=== PATIENT | male | born 1965 | race Caucasian/White ===

== ENCOUNTER 2017-11-10 11:18 | Observation (INO) | payer MEDICARE ==
--- NOTE | 2017-11-10 12:17 | RAD REPORT ---
EXAM DESCRIPTION: CT - Head Brain Wo Cont - 11/10/2017 12:08 pm CLINICAL HISTORY: Numbness and headaches COMPARISON: None TECHNIQUE: Computed axial tomography of the head was obtained. IV contrast was not requested. All CT scans are performed using dose optimization technique as appropriate and may include automated exposure control or mA/KV adjustment according to patient size. FINDINGS: An intracranial bleed is not seen . The ventricles are normal in caliber. No extra-axial fluid collection is noted. 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 Fluid within the sinuses/ mastoids is not seen. IMPRESSION: No acute intracranial abnormality is seen. If patient's symptoms persist MRI of the bra in would be recommended.
[2017-11-10 12:20] LABS: Absolute Monocytes 0.7 K/uL (0.1-1.3); Basophils % 1.2 % (0-1.3); Eosinophils % 4.5 % (0-4.4); Hematocrit 40.7 % (39.6-49.0); Lymphocytes % 24.7 % (15.3-44.8); MCH 28.4 pg (27.0-35.0); MCV 86.4 fL (80-100); Monocytes % 8.4 % (3.3-12.3)
[2017-11-10] MEDS ORDERED: FENTANYL CITR 100 MCG/2 ML ONE (12:59)
[2017-11-10 13:48] LABS: BUN Blood Urea Nitrogen 32 mg/dL (7-18); Bicarbonate 28 mmol/L (21-32); Glucose Level 126 mg/dL (74-106); Potassium 4.1 mmol/L (3.5-5.1); Sodium Level 147 mmol/L (136-145)
[2017-11-10 14:01] LABS: C-Reactive Protein < 5.00 mg/L (<3.00)
[2017-11-10] MEDS ORDERED: NA CHLORIDE 0.9% 1,000 ML ONE (14:10)
--- NOTE | 2017-11-10 14:35 | EDPHYS ---
Physician Documentation [facility] Name: Orlando Burris Age: 52 yrs Sex: Male : 1965 Arrival Date: 11/10/2017 Time: 11:22 Bed 6 Private MD: CECELIA HANKS ED Physician Alan Rico HPI: 11/10 12:21 This 52 yrs old Male presents to ER via Wheelchair with complaints of HEAD jr8 PAIN, Numbness Of Lips. 12:21 The patient complains of pain to the right hinduism. The patient describes the headache jr8 as constant, sharp. Onset: The symptoms/episode began/occurred acutely, 4 day(s) ago. Associated signs and symptoms: Pertinent positives: paresthesias. Severity of symptoms: At its worst the pain was moderate, in the emergency department the pain is unchanged. Headache History: The patient has had previous headaches and this one is different than previous episodes. The symptoms are alleviated by nothing. the symptoms are aggravated by nothing. The patient has not experienced similar symptoms in the past. The patient has not recently seen a physician. 12:21 right sided headache around hinduism that has been going on for four days. Feels jr8 paresthesias of the right lateral lip. Denies any other deficits . Historical: - Allergies: 11:37 NKDA; tw2 - Home Meds: 11:37 amlodipine 10 mg tab 1 tab once daily [Active]; atorvastatin 40 mg Oral tab 1 tab once tw2 daily [Active]; Butalbital Compound 50-325-40 mg Oral tab 1 tab every 4 hours [Active]; - PMHx: 11:37 Diabetes - IDDM; High Cholesterol; Hypertension; tw2 - PSHx: 11:37 right foot surgery; tw2 - Immunization history:: Adult Immunizations up to date. - Social history:: Smoking status: Patient uses tobacco products, smokes one-half pack cigarettes per day. - Ebola Screening: : Patient denies travel to an Ebola-affected area in the 21 days before illness onset. ROS: 12:21 Eyes: Negative for injury, pain, redness, and discharge, ENT: Negative for injury, jr8 pain, and discharge, Neck: Negative for injury, pain, and swelling, Cardiovascular: Negative for chest pain, palpitations, and edema, Respiratory: Negative for shortness of breath, cough, wheezing, and pleuritic chest pain, Abdomen/GI: Negative for abdominal pain, nausea, vomiting, diarrhea, and constipation, Back: Negative for injury and pain, MS/Extremity: Negative for injury and deformity, Skin: Negative for injury, rash, and discoloration. 12:21 Neuro: Positive for headache, numbness, tingling. Exam: 12:21 Head/Face: Normocephalic, atraumatic. Eyes: Pupils equal round and reactive to light, jr8 extra-ocular motions intact. Lids and lashes normal. Conjunctiva and sclera are non-icteric and not injected. Cornea within normal limits. Periorbital areas with no swelling, redness, or edema. ENT: Nares patent. No nasal discharge, no septal abnormalities noted. Tympanic membranes are normal and external auditory canals are clear. Oropharynx with no redness, swelling, or masses, exudates, or evidence of obstruction, uvula midline. Mucous membranes moist. Neck: Trachea midline, no thyromegaly or masses palpated, and no cervical lymphadenopathy. Supple, full range of motion without nuchal rigidity, or vertebral point tenderness. No Meningismus. Cardiovascular: Regular rate and rhythm with a normal S1 and S2. No gallops, murmurs, or rubs. Normal PMI, no JVD. No pulse deficits. Respiratory: Lungs have equal breath sounds bilaterally, clear to auscultation and percussion. No rales, rhonchi or wheezes noted. No increased work of breathing, no retractions or nasal flaring. Abdomen/GI: Soft, non-tender, with normal bowel sounds. No distension or tympany. No guarding or rebound. No evidence of tenderness throughout. Back: No spinal tenderness. No costovertebral tenderness. Full range of motion. Skin: Warm, dry with normal turgor. Normal color with no rashes, no lesions, and no evidence of cellulitis. MS/ Extremity: Pulses equal, no cyanosis. Neurovascular intact. Full, normal range of motion. 12:21 Neuro: Orientation: to person, place, time \T\ situation. Mentation: is normal, Memory: is normal, immediate memory is intact, recent memory is intact, remote memory is intact, Cranial nerves: CN I not tested, CN II- XII are normal as tested, visual mcelroy are intact. extraocular movements are intact, Facial palsy and sensory deficits are absent. no gross hearing deficit,. Nystagmus is absent. Speech is clear and appropriate. Tongue strength is normal, Cerebellar function: normal finger to nose testing, heel to moran testing is normal, Motor: moves all fours, strength is 5/5 in all extremities, Sensation: no obvious gross deficits, Gait: not tested. seizure activity, is not displayed by the patient, Abnormal movements: there are no abnormal movements. Vital Signs: 11:22 Weight 115.67 kg; Height 6 ft. 11 in. (210.82 cm); Pain 6/10; ss 11:34 BP 92 / 58; Pulse 75; Resp 14; Temp 98.4; Pulse Ox 96% on R/A; tw2 11:44 BP 110 / 64 (man/); Pulse 75; tw2 12:30 BP 129 / 71; Pulse 73; Resp 14; Pulse Ox 96% on R/A; tw2 13:07 BP 147 / 74; Pulse 75; Resp 10; Pulse Ox 95% on R/A; tw2 14:16 BP 134 / 80; Pulse 74; Resp 14; Pulse Ox 97% on R/A; tw2 15:21 BP 149 / 90; Pulse 76; Resp 17; Pulse Ox 97% on R/A; tw2 16:04 BP 129 / 79; Pulse 79; Resp 17; Pulse Ox 98% on R/A; tw2 11:22 Body Mass Index 26.02 (115.67 kg, 210.82 cm) ss 11:44 provider MAURICIO Phillips at bedside and is aware tw2 NIH Stroke Scale Scores: 12:21 NIHSS Score: 0 jr8 MDM: 11:38 Patient medically screened. jr8 14:32 Data reviewed: vital signs, nurses notes, lab test result(s), radiologic studies, CT jr8 scan, and as a result, I will admit patient. Data interpreted: Pulse oximetry: on room air is 97 %. Interpretation: normal. Counseling: I had a detailed discussion with the patient and/or guardian regarding: the historical points, exam findings, and any diagnostic results supporting the discharge/admit diagnosis, lab results, radiology results, the need for further work-up and treatment in the hospital. ED course: Dr. Quinn accepted patient for further evaluation. Will consult Neurology. Talked to Dr. Johnson. At this time she is not convinced it is temporal arteritis. Will have neurology see him for stroke work up and to further r/o other causes of his numbness and headache . 11/10 11:47 Order name: CBC with Diff; Complete Time: 12:43 [facility] 11/10 11:47 Order name: Basic Metabolic Panel; Complete Time: 14:04 [facility] 11/10 11:47 Order name: C-Reactive Protein; Complete Time: 14:04 [facility] 11/10 11:47 Order name: Westergren Sedrate; Complete Time: 12:43 [facility] 11/10 15:20 Order name: Urine Dipstick--Ancillary (enter results) em1 11/10 15:31 Order name: Urine Dipstick-Ancillary; Complete Time: 15:56 [facility] 11/10 11:47 Order name: CT Head Brain wo Cont; Complete Time: 12:19 [facility] 11/10 14:33 Order name: Diet Ada 1800 Julio; Complete Time: 14:33 [facility] 11/10 14:46 Order name: CONS Physician Consult [facility] 11/10 11:47 Order name: IV; Complete Time: 12:10 [facility] 11/10 15:20 Order name: Urine Dipstick-Ancillary (obtain specimen); Complete Time: 15:20 em1 Administered Medications: 13:00 Drug: fentaNYL (PF) 25 mcg Route: IVP; Site: right forearm; tw2 14:00 Follow up: Response: No adverse reaction; Pain is unchanged, physician notified tw2 14:10 Drug: NS 0.9% 1000 ml Route: IV; Rate: 1000 ml; Site: right forearm; tw2 16:02 Follow up: Response: No adverse reaction; IV Status: Completed infusion; IV Intake: tw2 1000ml 14:38 Drug: Reglan 10 mg Route: IVP; Site: right forearm; tw2 16:02 Follow up: Response: No adverse reaction tw2 14:41 Drug: Benadryl 25 mg Route: IVP; Site: right forearm; tw2 16:02 Follow up: Response: No adverse reaction tw2 16:18 Drug: D50W 25 ml Route: IVP; Site: right forearm; tw2 16:39 Follow up: Response: No adverse reaction; Blood sugar is elevated tw2 Point of Care Testing: Blood Glucose: 16:12 Blood Glucose: 59 mg/dL; tw2 16:39 Blood Glucose: 191 mg/dL; tw2 16:12 per eli Benitez at this time. pt given PB and crackers will recheck before sending to the tw2 floor,provider notified. Ranges: Critical Glucose Levels:Adult <50 mg/dl or >400 mg/dl <40 mg/dl or >180 mg/dl Disposition: 11/10/17 14:34 Hospitalization ordered by Geo Quinn for Observation. Preliminary diagnosis are Headache, Paresthesia of skin. - Bed requested for Telemetry/MedSurg (observation). - Status is Observation. tw2 - Condition is Stable. - Problem is new. - Symptoms have improved. UTI on Admission? No NIH Stroke Scale - NIH Stroke Score Date: 11/10/2017 Time: 12:21 Total Score = 0 1a. Level of Consciousness (LOC) - 0(Alert) 1b. Level of Consciousness (LOC) (Year \T\ Age) - 0(Both) 1c. LOC Commands (Open \T\ Closes Eyes/Receiver Stocker) - 0(Both) 2. Best Gaze (Lateral Gaze Paresis) - 0(Normal) 3. Visual Field Loss - 0(No visual loss) 4. Facial Palsy - 0(Normal) 5a. Left Arm: Motor (10-second hold) - 0(No drift) 5b. Right Arm: Motor (10-second hold) - 0(No drift) 6a. Left Leg: Motor (5-second hold - always test supine) - 0(No drift) 6b. Right Leg: Motor (5-second hold - always test supine) - 0(No drift) 7. Limb Ataxia (finger/nose \T\ heel/moran - test with eyes open) - 0(Absent) 8. Sensory Loss (pinprick arms/legs/face) - 0(Normal) 9. Best Language: Aphasia (description/naming/reading) - 0(No aphasia) 10. Dysarthria (speech clarity - read or repeat words) - 0(Normal) 11. Extinction and Inattention (visual/tactile/auditory/spatial/personal) - 0(No abnormality) Initials: jr8 Addendum: 11/12/2017 14:42 Co-signature as Attending Physician, Alan Rico MD I agree with the il assessment and plan of care. Signatures: Dispatcher [employer] EDMS Mary Powers RN RN dw Haider Burt em1 Jimena Verma RN RN Jose Jameson PA PA jr8 Marcella Vega RN RN tw2 Alan Rico MD MD wa Corrections: (The following items were deleted from the chart) 11/10 15:53 14:34 Hospitalization Ordered by Geo Quinn MD for Observation. Preliminary dw diagnosis is Headache; Paresthesia of skin. Bed requested for Telemetry/MedSurg (observation). Status is Observation. Condition is Stable. Problem is new. Symptoms have improved. UTI on Admission? No. jr8 16:40 15:53 11/10/2017 14:34 Hospitalization Ordered by Geo Quinn MD for tw2 Observation. Preliminary diagnosis is Headache; Paresthesia of skin. Bed requested for Telemetry/MedSurg (observation). Status is Observation. Condition is Stable. Problem is new. Symptoms have improved. UTI on Admission? No. dw
--- NOTE | 2017-11-10 14:35 | ER ---
Nurse's Notes [facility] Name: Orlando Burris Age: 52 yrs Sex: Male : 1965 Arrival Date: 11/10/2017 Time: 11:22 Bed 6 Private MD: CECELIA HANKS Diagnosis: Headache;Paresthesia of skin Presentation: 11/10 11:22 Presenting complaint: Patient states: Sent by wound healing for evaluation of tingling ss to R side of lips x 4-5 days and R sided headache x 2-3 days. Transition of care: patient was not received from another setting of care. Onset of symptoms was November 06, 2017. Risk Assessment: Do you want to hurt yourself or someone else? Patient reports no desire to harm self or others. Initial Sepsis Screen: Does the patient meet any 2 criteria? No. Patient's initial sepsis screen is negative. Does the patient have a suspected source of infection? Yes: Skin breakdown/wound. Care prior to arrival: None. 11:22 Method Of Arrival: Wheelchair ss 11:22 Acuity: NIRAJ 3 ss 11:38 Transition of care: patient was not received from another setting of care. Onset of tw2 symptoms was November 10, 2017. Risk Assessment: Do you want to hurt yourself or someone else? Patient reports no desire to harm self or others. Initial Sepsis Screen: Does the patient meet any 2 criteria? Does the patient have a suspected source of infection? No. Patient's initial sepsis screen is negative. Care prior to arrival: None. 11:38 Acuity: NIRAJ 3 tw2 11:38 Method Of Arrival: Wheelchair tw2 Historical: - Allergies: 11:37 NKDA; tw2 - Home Meds: 11:37 amlodipine 10 mg tab 1 tab once daily [Active]; atorvastatin 40 mg Oral tab 1 tab once tw2 daily [Active]; Butalbital Compound 50-325-40 mg Oral tab 1 tab every 4 hours [Active]; - PMHx: 11:37 Diabetes - IDDM; High Cholesterol; Hypertension; tw2 - PSHx: 11:37 right foot surgery; tw2 - Immunization history:: Adult Immunizations up to date. - Social history:: Smoking status: Patient uses tobacco products, smokes one-half pack cigarettes per day. - Ebola Screening: : Patient denies travel to an Ebola-affected area in the 21 days before illness onset. Screenin:36 Abuse screen: Denies threats or abuse. Nutritional screening: No deficits noted. tw2 Tuberculosis screening: No symptoms or risk factors identified. Fall Risk None identified. Assessment: 11:35 General: Appears in no apparent distress. slender, Behavior is calm, cooperative, tw2 appropriate for age, Smells of cigarette smoke. Pain: Complains of pain in right jewish. Neuro: Level of Consciousness is awake, alert, obeys commands, Oriented to person, place, time, situation. Cardiovascular: Denies chest pain, shortness of breath, Heart tones S1 S2 Capillary refill < 3 seconds Patient's skin is warm and dry. Respiratory: Airway is patent Respiratory effort is even, unlabored, Respiratory pattern is regular, symmetrical, Breath sounds are clear bilaterally. GI: Abdomen is flat, Bowel sounds present X 4 quads. : No signs and/or symptoms were reported regarding the genitourinary system. EENT: No signs and/or symptoms were reported regarding the EENT system. Derm: No signs and/or symptoms reported regarding the dermatologic system. Musculoskeletal: Range of motion: intact in all extremities. 12:31 Reassessment: Patient appears in no apparent distress at this time. No changes from tw2 previously documented assessment. Patient and/or family updated on plan of care and expected duration. Pain level reassessed. Patient is alert, oriented x 3, equal unlabored respirations, skin warm/dry/pink. 13:07 Reassessment: No changes from previously documented assessment. Patient and/or family tw2 updated on plan of care and expected duration. Pain level reassessed. Patient is alert, oriented x 3, equal unlabored respirations, skin warm/dry/pink. pt states "i am mad at my sister for not being up here", offered to call pts sister pt states "she has the phone and i dont know the number but she is talking to her ex and i see who is more important, but you can call here and tell her to get up here", called sister she stated "tell him i dropped off his niece who needed a ride to work and i am on my way", pt notified pt states "well she is going to hear it when she gets up here". 14:17 Reassessment: Patient appears in no apparent distress at this time. No changes from tw2 previously documented assessment. Patient and/or family updated on plan of care and expected duration. Pain level reassessed. Patient is alert, oriented x 3, equal unlabored respirations, skin warm/dry/pink. 15:22 Reassessment: Patient appears in no apparent distress at this time. No changes from tw2 previously documented assessment. Patient and/or family updated on plan of care and expected duration. Pain level reassessed. Patient is alert, oriented x 3, equal unlabored respirations, skin warm/dry/pink. 16:00 Reassessment: Patient appears in no apparent distress at this time. No changes from tw2 previously documented assessment. Patient and/or family updated on plan of care and expected duration. Pain level reassessed. Patient is alert, oriented x 3, equal unlabored respirations, skin warm/dry/pink. 16:39 Reassessment: Patient appears in no apparent distress at this time. No changes from tw2 previously documented assessment. Patient and/or family updated on plan of care and expected duration. Pain level reassessed. Patient is alert, oriented x 3, equal unlabored respirations, skin warm/dry/pink. Vital Signs: 11:22 Weight 115.67 kg; Height 6 ft. 11 in. (210.82 cm); Pain 6/10; ss 11:34 BP 92 / 58; Pulse 75; Resp 14; Temp 98.4; Pulse Ox 96% on R/A; tw2 11:44 BP 110 / 64 (man/); Pulse 75; tw2 12:30 BP 129 / 71; Pulse 73; Resp 14; Pulse Ox 96% on R/A; tw2 13:07 BP 147 / 74; Pulse 75; Resp 10; Pulse Ox 95% on R/A; tw2 14:16 BP 134 / 80; Pulse 74; Resp 14; Pulse Ox 97% on R/A; tw2 15:21 BP 149 / 90; Pulse 76; Resp 17; Pulse Ox 97% on R/A; tw2 16:04 BP 129 / 79; Pulse 79; Resp 17; Pulse Ox 98% on R/A; tw2 11:22 Body Mass Index 26.02 (115.67 kg, 210.82 cm) ss 11:44 provider MAURICIO Phillips at bedside and is aware tw2 NIH Stroke Scale Scores: 12:21 NIHSS Score: 0 jr8 ED Course: 11:22 Patient arrived in ED. sb2 11:23 CECELIA HANKS is Private Physician. sb2 11:28 Marcella Vega, FRANCISCO is Primary Nurse. tw2 11:35 Arm band placed on. tw2 11:35 Placed in gown. Bed in low position. Side rails up X 1. delivery associate on. Pulse ox tw2 on. NIBP on. 11:38 Jose Jamseon PA is PHCP. jr8 11:38 Alan Rico MD is Attending Physician. jr8 11:40 Triage completed. ss 11:[address] mw3 11:55 Inserted saline lock: 22 gauge in right wrist, using aseptic technique. Blood collected.jp3 11:55 Initial lab(s) drawn, by me, sent to lab. Inserted. jp3 12:06 CT completed. Patient tolerated procedure well. Patient moved back from CT. mw3 12:08 CT Head Brain wo Cont In Process Unspecified. EDMS 14:34 Geo Quinn MD is Hospitalizing Provider. jr8 16:01 No provider procedures requiring assistance completed. Patient admitted, IV remains in tw2 place. 16:26 Awaiting: recheck of Blood sugar prior to going to floor room. tw2 Administered Medications: 13:00 Drug: fentaNYL (PF) 25 mcg Route: IVP; Site: right forearm; tw2 14:00 Follow up: Response: No adverse reaction; Pain is unchanged, physician notified tw2 14:10 Drug: NS 0.9% 1000 ml Route: IV; Rate: 1000 ml; Site: right forearm; tw2 16:02 Follow up: Response: No adverse reaction; IV Status: Completed infusion; IV Intake: tw2 1000ml 14:38 Drug: Reglan 10 mg Route: IVP; Site: right forearm; tw2 16:02 Follow up: Response: No adverse reaction tw2 14:41 Drug: Benadryl 25 mg Route: IVP; Site: right forearm; tw2 16:02 Follow up: Response: No adverse reaction tw2 16:18 Drug: D50W 25 ml Route: IVP; Site: right forearm; tw2 16:39 Follow up: Response: No adverse reaction; Blood sugar is elevated tw2 Point of Care Testing: Blood Glucose: 16:12 Blood Glucose: 59 mg/dL; tw2 16:39 Blood Glucose: 191 mg/dL; tw2 16:12 per eli Benitez at this time. pt given PB and crackers will recheck before sending to the 2 floor,provider notified. Ranges: Intake: 16:02 IV: 1000ml; Total: 1000ml. tw2 Outcome: 14:34 Decision to Hospitalize by Provider. dayo 16:02 Admitted to Med/surg accompanied by eli, via wheelchair, room 205, Report called to [facility] FRANCISCO Flores 16:02 Condition: stable 16:02 Instructed on the need for admit. 16:40 Patient left the ED. tw2 NIH Stroke Scale - NIH Stroke Score Date: 11/10/2017 Time: 12:21 Total Score = 0 1a. Level of Consciousness (LOC) - 0(Alert) 1b. Level of Consciousness (LOC) (Year \\T\\ Age) - 0(Both) 1c. LOC Commands (Open \\T\\ Closes Eyes/Sprinkler Installer) - 0(Both) 2. Best Gaze (Lateral Gaze Paresis) - 0(Normal) 3. Visual Field Loss - 0(No visual loss) 4. Facial Palsy - 0(Normal) 5a. Left Arm: Motor (10-second hold) - 0(No drift) 5b. Right Arm: Motor (10-second hold) - 0(No drift) 6a. Left Leg: Motor (5-second hold - always test supine) - 0(No drift) 6b. Right Leg: Motor (5-second hold - always test supine) - 0(No drift) 7. Limb Ataxia (finger/nose \\T\\ heel/moran - test with eyes open) - 0(Absent) 8. Sensory Loss (pinprick arms/legs/face) - 0(Normal) 9. Best Language: Aphasia (description/naming/reading) - 0(No aphasia) 10. Dysarthria (speech clarity - read or repeat words) - 0(Normal) 11. Extinction and Inattention (visual/tactile/auditory/spatial/personal) - 0(No abnormality) Initials: dayo Signatures: Dispatcher [employer] EDWY Jimena Verma RN RN ss Roszak, Josh, PA PA jr8 Marcella Vega RN RN tw2 Zeynep Kat sb2 Jimena Domínguez mw3 Wood Anderson jp3
[2017-11-10] MEDS ORDERED: METOCLOPRAMIDE 10 MG/2mL INJ ONE (14:38)
[2017-11-10] MEDS ORDERED: DIPHENHYDRAMINE 50 MG/ML VIAL ONE (14:38)
[2017-11-10 15:31] LABS: Urine Blood NEGATIVE (NEG); Urine Glucose NEGATIVE (NEG); Urine Protein 1+ (NEG); Urine Specific Gravity 1.025 (1.005-1.030)
[2017-11-10] MEDS ORDERED: D50W 25 GM/50 ML SYRINGE IV ONE (16:20)
[2017-11-10] MEDS ORDERED: INSULIN -REGULAR HUMAN 50 UNIT/0.5 ML ML SQ SCH (16:49)
[2017-11-10] MEDS ORDERED: D50W 25 GM/50 ML SYRINGE IV PRN ×2 (16:49→17:05)
[2017-11-10] MEDS ORDERED: ONDANSETRON 4 MG/2 ML VIAL IV PRN (16:49)
[2017-11-10] MEDS ORDERED: GLUCAGON 1 MG/VIAL IM PRN ×2 (16:49→17:05)
--- NOTE | 2017-11-10 17:11 | P.HP ---
Certification for Inpatient Patient admitted to: Inpatient With expected LOS: >2 Midnights Patient will require the following post-hospital care: None Practitioner: I am a practitioner with admitting privileges, knowledge of patient current condition, hospital course, and medical plan of care. Services: Services provided to patient in accordance with Admission requirements found in Title 42 Section 412.3 of the Code of Federal Regulations Patient History Date of Service: 11/10/17 Reason for admission: tia History of Present Illness: Patient came to see me in the wound care center. Unfortunately he was having numbness on the right side of the face an a sharp headache. This has been going on for 4 days. Considering he is an uncontrolled diabetic who has already suffered several amputations the patient was sent to the ER. He was found to have a normal ct, elevated esr and elevated creatine of 1.5 Previous creatine were in the 1 range. Decision was made to have him admitted and seen by Dr. Frye. Allergies No Known Drug Allergies Allergy (Verified 10/19/16 21:36) Unknown cactus thorns Allergy (Severe, Uncoded 10/19/16 21:36) Itching/Hives/Rash Home Medications: Amlodipine [Norvasc*] 1 tab PO DAILY 10/20/16 Atorvastatin Calcium 1 tab PO DAILY AT SUPPER 10/20/16 Lisinopril [Prinivil*] 40 mg PO DAILY tab 10/29/16 Carvedilol [Coreg*] 25 mg PO BID 01/05/17 hydroCHLOROthiazide [Hydrodiuril*] 25 mg PO DAILY 01/05/17 Hydralazine HCl [Apresoline] 100 mg PO TID 11/10/17 Insulin 70/30 NPH/Reg Human [Novolin 70/30*] 20 unit SQ BID 11/10/17 Medihoney [Medihoney Woundcare Gel] 1 appl TOP DAILY 11/10/17 - Past Medical/Surgical History Diabetic: Yes -: HTN -: DM -: Hyperlipidemia -: Neuropathy -: abcess I&D of buttocks -: Left 3rd toe amputation - Family History Father -: Hypertension - Social History Alcohol use: Yes CD- Drugs: No Caffeine use: Yes Review of Systems 10-point ROS is otherwise unremarkable General: Weakness Neurological: Weakness (right lips), Numbness (right mount and face) Physical Examination - Vital Signs Temperature: 98.4 F Blood Pressure: 129/71 Pulse: 73 Respirations: 14 - Physical Exam General: Alert, In no apparent distress HEENT: Atraumatic, PERRLA, Mucous membr. moist/pink, EOMI, Sclerae nonicteric Neck: Supple, 2+ carotid pulse no bruit, No LAD, Without JVD or thyroid abnormality Respiratory: Clear to auscultation bilaterally, Normal air movement Cardiovascular: Regular rate/rhythm, Normal S1 S2 Gastrointestinal: Normal bowel sounds, No tenderness Musculoskeletal: No tenderness Integumentary: No rashes Neurological: Normal gait, Normal speech, Normal strength at 5/5 x4 extr, Normal tone, Normal affect, Abnormal strength (weakness of the right eyelids in comparsion. also uneven smile) Lymphatics: No axilla or inguinal lymphadenopathy - Studies Laboratory Data (last 24 hrs) 11/10/17 11:55: Sodium 147 H, Potassium 4.1, BUN 32 H, Creatinine 1.50 H, Glucose 126 H 11/10/17 11:55: WBC 8.1, Hgb 13.4 L, Hct 40.7, Plt Count 245 Assessment and Plan - Problems (Diagnosis) (1) TIA (transient ischemic attack) Current Visit: Yes Status: Acute Plan: will have him seen by Dr. Frye. Restart his atorvastatin and start a low dose asprin. Will need to control blood sugar and blood pressure. Order neurochecks on the patient as well. Qualifiers: Transient cerebral ischemia type: unspecified Qualified Code(s): G45.9 - Transient cerebral ischemic attack, unspecified (2) Acute renal failure Current Visit: Yes Status: Acute Plan: No previous creatine elevations. Will start him on fluids. Monitor creatine and will adjust treatment as necessary. Qualifiers: Acute renal failure type: unspecified Qualified Code(s): N17.9 - Acute kidney failure, unspecified (3) Diabetes Onset Date: 03/29/17 Current Visit: No Status: Acute Plan: No a1c since Mar. He was well controlled at 6.9. Not aware of his medications. Will start him on insulin sliding scale. Qualifiers: Diabetes mellitus type: type 2 (4) HTN (hypertension) Onset Date: 01/31/16 Current Visit: No Status: Chronic Plan: continue amlodipine and lisinopril. Will adjust as necessary. Qualifiers: Hypertension type: essential hypertension (5) Hyperlipemia Onset Date: 01/31/16 Current Visit: No Status: Chronic Plan: restart atorvastatin and check a fasting lipid profile. Qualifiers: Hyperlipidemia type: pure hypercholesterolemia Qualified Code(s): E78.00 - Pure hypercholesterolemia, unspecified; E78.0 - Pure hypercholesterolemia Discharge Plan: Home Plan to discharge in: 48 Hours - Advance Directives Does patient have a Living Will: No Does patient have a Durable POA for Healthcare: No - Code Status/Comfort Care Code Status Assessed: No Physician Review: Patient Assessed, Agree with Above Assessment and Plan Critical Care: No Time Spent Managing Pts Care (In Minutes): 50
[2017-11-10 17:43] VITALS: BMI 33.6
[2017-11-10] MEDS: NA CHLORIDE 0.9% 1,000 ML IV SCH (18:12)
[2017-11-10] MEDS: ENOXAPARIN 40 MG/0.4 ML SQ SCH (18:13)
[2017-11-10] MEDS: ATORVASTATIN 40 MG TAB PO SCH (18:13)
--- NOTE | 2017-11-10 20:06 | RAD REPORT ---
EXAM DESCRIPTION: MRI - Brain Wo Cont - 11/10/2017 5:48 pm CLINICAL HISTORY: Headache, right-sided facial tingling COMPARISON: CT head same date TECHNIQUE: Sagittal T1-weighted images were obtained along with axial PD, heavily T2-weighted and T2 -FLAIR images. Axial DWI and ADC mapping sequences were also obtained along with coronal heavily T2-w eighted images. FINDINGS: No intracranial hemorrhage, mass, edema or shift of midline structures. Diffusion imaging shows no acute infarction. The periventricular T2/IR signal abnormalities are present. The largest on the right measures 12 mm. This is near the right frontal parietal junction abutting the ventricle. A few of the white matter signal abnormalities are oriented perpendicular to the ventricles. No extra- axial fluid collections. Gregory-matter/white matter junction is preserved. Signal voids are seen as a n ormal finding in the major intracranial vessels. No sella or supra sella abnormality. Mastoid air cells are clear. Mucosal thickening or retention cyst seen along the floor of the left ma xillary sinus. IMPRESSION: No acute infarction changes are seen. No hemorrhage, mass or acute intracranial finding. T2/IR white matter signal abnormalities are present. Chronic ischemic change is the most common etiol ogy. The orientation of a few of the white matter lesions raises the possibility of demyelinization. Correlation is needed to determine if the patient's symptoms may be related to multiple sclerosis. Vasculitis or migraine headache etiologies are possible as well.
[2017-11-10] MEDS: CARVEDILOL 25 MG TAB PO SCH (20:13)
[2017-11-10] MEDS: INSULIN -REGULAR HUMAN 50 UNIT/0.5 ML ML SQ SCH (21:00)
[2017-11-10] MEDS: DIPHENHYDRAMINE 50 MG/ML VIAL IV PRN (22:33)
[2017-11-10] MEDS: METOCLOPRAMIDE 10 MG/2mL INJ IV PRN (22:33)
[2017-11-11 01:28] VITALS: O2SAT 95
[2017-11-11 06:01] LABS: Absolute Lymphocytes (CBC) 1.9 K/uL (0.7-4.9); Absolute Monocytes 0.6 K/uL (0.1-1.3); Absolute Neutrophil 3.6 K/uL (1.8-8.0); Basophils % 1.8 % (0-1.3); Eosinophils % 6.1 % (0-4.4); Hematocrit 37.5 % (39.6-49.0); Lymphocytes % 28.7 % (15.3-44.8); MCH 28.4 pg (27.0-35.0); MCV 86.7 fL (80-100); Monocytes % 9.4 % (3.3-12.3); RBC Red Blood Cell Count 4.33 M/uL (4.33-5.43)
[2017-11-11 06:26] LABS: Albumin 2.8 g/dL (3.4-5.0); Bilirubin Total 0.5 mg/dL (0.2-1.0); Potassium 3.7 mmol/L (3.5-5.1); Protein, Total 6.3 g/dL (6.4-8.2); Thyroid Stimulating Hormone 1.28 uIU/mL (0.36-3.74)
[2017-11-11] MEDS: NA CHLORIDE 0.9% 1,000 ML IV SCH ×2 (06:53→17:39)
[2017-11-11] MEDS ORDERED: PANTOPRAZOLE 40MG TABLET PO SCH (07:30)
[2017-11-11] MEDS: INSULIN -REGULAR HUMAN 50 UNIT/0.5 ML ML SQ SCH ×3 (07:30→16:30)
[2017-11-11] MEDS: DIPHENHYDRAMINE 50 MG/ML VIAL IV PRN (08:42)
[2017-11-11] MEDS: METOCLOPRAMIDE 10 MG/2mL INJ IV PRN (08:42)
[2017-11-11] MEDS: CARVEDILOL 25 MG TAB PO SCH ×2 (08:43→20:19)
[2017-11-11] MEDS ORDERED: hydroCHLOROthiazide 25 MG TAB PO SCH (09:00)
[2017-11-11] MEDS ORDERED: ASPIRIN 81 MG CHEWABLE TABLET PO SCH (09:00)
[2017-11-11] MEDS ORDERED: LISINOPRIL 20 MG TAB PO SCH (09:00)
[2017-11-11] MEDS ORDERED: AMLODIPINE 10 MG TAB PO SCH (09:00)
[2017-11-11] MEDS ORDERED: GLUCAGON 1 MG/VIAL IM PRN (09:03)
[2017-11-11] MEDS ORDERED: D50W 25 GM/50 ML SYRINGE IV PRN (09:03)
--- NOTE | 2017-11-11 13:16 | P.PN ---
Subjective Date of Service: 11/11/17 Chief Complaint: tia Subjective: No new changes Review of Systems 10-point ROS is otherwise unremarkable Neurological: Numbness (right face) Physical Examination - Vital Signs Temperature: 98.4 F Blood Pressure: 176/89 Pulse: 72 Respirations: 20 Pulse Ox (%): 96 - Physical Exam General: Alert, In no apparent distress HEENT: Atraumatic, PERRLA, EOMI Neck: Supple, JVD not distended Respiratory: Clear to auscultation bilaterally, Normal air movement Cardiovascular: Regular rate/rhythm, Normal S1 S2 Gastrointestinal: Normal bowel sounds, No tenderness Musculoskeletal: No tenderness Integumentary: No rashes Neurological: Normal speech, Normal tone, Normal affect Lymphatics: No axilla or inguinal lymphadenopathy - Studies Laboratory Data (last 24 hrs) 11/10/17 11:55: Sodium 147 H, Potassium 4.1, BUN 32 H, Creatinine 1.50 H, Glucose 126 H Assessment & Plan - Problems (Diagnosis) (1) TIA (transient ischemic attack) Onset Date: 11/11/17 Current Visit: Yes Status: Acute Plan: will have him seen by Dr. Frye. MRI shows possible inflammation. Possible complex migrane. Will have him Qualifiers: Transient cerebral ischemia type: unspecified Qualified Code(s): G45.9 - Transient cerebral ischemic attack, unspecified (2) Acute renal failure Onset Date: 11/11/17 Current Visit: Yes Status: Acute Plan: No previous creatine elevations. Will start him on fluids. Monitor creatine and will adjust treatment as necessary. Qualifiers: Acute renal failure type: unspecified Qualified Code(s): N17.9 - Acute kidney failure, unspecified (3) Diabetes Onset Date: 11/11/17 Current Visit: No Status: Acute Plan: Has normal a1c is doing well. Qualifiers: Diabetes mellitus type: type 2 (4) HTN (hypertension) Onset Date: 11/11/17 Current Visit: No Status: Chronic Plan: continue amlodipine and lisinopril. Will adjust as necessary. Qualifiers: Hypertension type: essential hypertension (5) Hyperlipemia Onset Date: 11/11/17 Current Visit: No Status: Chronic Plan: restart atorvastatin and check a fasting lipid profile. Qualifiers: Hyperlipidemia type: pure hypercholesterolemia Qualified Code(s): E78.00 - Pure hypercholesterolemia, unspecified; E78.0 - Pure hypercholesterolemia Discharge Plan: Home Plan to discharge in: 24 Hours - Code Status/Comfort Care Code Status Assessed: No Code Status: Full Code Physician Review: Patient Assessed, Agree with Above Assessment and Plan Critical Care: No Time Spent Managing Pts Care (In Minutes): 20
[2017-11-11] MEDS: ENOXAPARIN 40 MG/0.4 ML SQ SCH (17:38)
[2017-11-11] MEDS: ATORVASTATIN 40 MG TAB PO SCH (17:38)
[2017-11-11 20:20] VITALS: BP 174/84
[2017-11-11 20:29] VITALS: TEMP 97.8
--- NOTE | 2017-11-12 01:55 | CON ---
Reason For Consultation: Consultation called by Dr. Quinn because of a possible TIA versus a stroke. History Of Present Illness: Mr. Burris is a 52-year-old patient who appears older than sta cristi age, with a history of at times poorly-controlled insulin-dependent diabetes mellitus, hypertensi on, and dyslipidemia, who comes in after a 4-day history of right facial pain along with numbness in the right upper and lower lips. He said prior to that, he was actually doing well, none of those sym ptoms. When they came on, they were off and on. The pain started actually acutely, was severe, like he was being poked in the head and then remained in a dull manner, and then the numbness in the righ t face began and tingling. He also had slurred speech and that was noted by his family members. He came into [facility] on 11/10/2017, had a head CT scan which showed no acute ischemic or hem orrhagic change. Subsequent brain MRI showed T2 and FLAIR white matter abnormalities that were chron ic. No acute changes seen. The radiologist noted that some of them appeared to have the look of dem yelination and may need to correlate with multiple sclerosis. It should be noted that review of the patient's chart indicated that in the past, the patient has had blood sugars. He said the highest re corded in the hospital of 1300, but sugars at least in the system were in the 400s and 500s for years . Hemoglobin A1c is high at 13.4, but more recently he has had better control of blood sugars rangin g in the just 200s or low 100s. He has also had chronic hypertension with blood pressures at times o misty 200/100. Therefore, it is less likely that he has a demyelinating condition and more likely a sm all-vessel ischemic disease related to those chronic conditions. The patient does say he is somewhat back to normal, but yet has some very subtle right facial tinglin g and mild slurred speech, although hard to detect as he has a full large can with mustache and doron d to even see the corners of his mouth due to the can. He said he was taking aspirin on a daily basis along with his new regimen of insulin and blood pressu re medication and statin. Past Medical History: As indicated above. Allergies: NO KNOWN DRUG ALLERGIES. Medications: Amlodipine 10 mg daily, atorvastatin 40 mg daily, butalbital every 4 hours as needed. Past Surgical History: He has had foot surgery and diabetic wounds. Social History: Smokes half a pack of cigarettes daily. Denies any alcohol use. Review of Systems: Denies any recent fevers or chills. Otherwise, no fevers or chills. No nausea or vomiting, myalgias or arthralgias. No rash, headache, or weight change. No psychiatric problems. Physical Examination: Vital Signs: Blood pressure 156/82, pulse 70, respiratory rate 18, temperature 98.4, and oxygen satu ration 95%. Weight 255 pounds, height 6 feet 1 inch, BMI 34. General: Mr. Burris is resting in bed. He is in no significant distress. HEENT: He is normocephalic, atraumatic. His sclerae are anicteric. Oropharynx is moist and pink. Neck: Supple. Chest: Clear. Heart: Regular. Extremities: Show no edema or cyanosis. Neurologic: Alert, oriented to person, place, time, and situation. He has normal labial, lingual, a nd guttural sounds. Very subtle slurring of speech noted. No obvious decreased right nasolabial fol d. Face is very symmetric. He does have subtle decrease to light touch temperature over the V1 dist ribution compared to V2 and the forehead wrinkles equally on the left and right. He has chronic decr eased hearing in the left ear, normal hearing in the right ear. He does have decreased visual acuity related to diabetes. Motor examination, he has intact arm and leg 5/5 strength proximally and dista lly. Sensory exam, stocking-glove loss to light touch temperature in the arms and legs. Reflexes ar e trace in the patella and 0 at the heels, 1+ to trace in the upper extremities. Coordination is int act in the upper extremities. Laboratory Studies: Complete blood count with differential shows a slightly low hemoglobin of 12.3 a nd hematocrit 37.5, otherwise normal. Chemistries: Sodium 140, potassium 3.7, chloride 110, creatin ine now 1.2 and on admission was 1.5. Liver function studies show unremarkable. C-reactive protein less than 5. Triglycerides 179, total cholesterol 126, LDL cholesterol 66, and HDL cholesterol 24. TSH 1.24. Urinalysis shows 1+ protein. Assessment: Mr. Burris is a 52-year-old patient with possible transient ischemic attack in the [facility] ng of hypertension, diabetes, dyslipidemia, and unlikely that he has a demyelinating condition. Plan: 1.Aspirin is indicated at least 81 mg daily. 2.Folate 1 mg daily. 3.High dose statin. 4.Aggressive management of diabetes mellitus and hypertension. 5.The patient may be discharged home. Follow up with Dr. Frye 1 month later. ELISSA/MARIANA Voice ID: [id number] Report ID: [id number]
--- NOTE | 2017-11-12 10:37 | P.DS ---
Admission Date: 11/10/17 Discharge Date: 11/11/17 Disposition: ROUTINE DISCHARGE Discharge Condition: GOOD Reason for Admission: tia - Problems (1) TIA (transient ischemic attack) Onset Date: 11/11/17 Status: Acute Qualifiers: Transient cerebral ischemia type: unspecified Qualified Code(s): G45.9 - Transient cerebral ischemic attack, unspecified (2) Acute renal failure Onset Date: 11/11/17 Status: Acute Qualifiers: Acute renal failure type: unspecified Qualified Code(s): N17.9 - Acute kidney failure, unspecified (3) Diabetes Onset Date: 11/11/17 Status: Acute Qualifiers: Diabetes mellitus type: type 2 (4) HTN (hypertension) Onset Date: 11/11/17 Status: Chronic Qualifiers: Hypertension type: essential hypertension (5) Hyperlipemia Onset Date: 11/11/17 Status: Chronic Qualifiers: Hyperlipidemia type: pure hypercholesterolemia Qualified Code(s): E78.00 - Pure hypercholesterolemia, unspecified; E78.0 - Pure hypercholesterolemia Brief History of Present Illness: Patient came to see me in the wound care center. Unfortunately he was having numbness on the right side of the face an a sharp headache. This has been going on for 4 days. Considering he is an uncontrolled diabetic who has already suffered several amputations the patient was sent to the ER. He was found to have a normal ct, elevated esr and elevated creatine of 1.5 Previous creatine were in the 1 range. Decision was made to have him admitted and seen by Dr. Frye. Hospital Course: Patient was admitted, had an MRI and was seen by Dr. Frye. Most likely a tia. he should follow up with Dr. Frye and [facility] for chronic treatment. Will have them discussed chronic treatment of his smoking, diabetes and htn Vital Signs/Physical Exam: Temp Pulse Resp BP Pulse Ox 97.8 F 82 20 174/84 H 97 11/11/17 20:00 11/11/17 20:19 11/11/17 20:00 11/11/17 20:19 11/11/17 20:00 General: Alert, In no apparent distress HEENT: Atraumatic, PERRLA, EOMI Neck: Supple, JVD not distended Respiratory: Clear to auscultation bilaterally, Normal air movement Cardiovascular: Regular rate/rhythm, Normal S1 S2 Gastrointestinal: Normal bowel sounds, No tenderness Musculoskeletal: No tenderness Integumentary: No rashes Neurological: Normal speech, Normal tone, Normal affect Lymphatics: No axilla or inguinal lymphadenopathy Laboratory Data at Discharge: WBC 6.7 K/uL (4.3-10.9) D 11/11/17 05:25 Hgb 12.3 g/dL (13.6-17.9) L 11/11/17 05:25 Hct 37.5 % (39.6-49.0) L 11/11/17 05:25 Plt Count 190 K/uL (152-406) D 11/11/17 05:25 Sodium 142 mmol/L (136-145) 11/11/17 05:25 Potassium 3.7 mmol/L (3.5-5.1) 11/11/17 05:25 BUN 30 mg/dL (7-18) H 11/11/17 05:25 Creatinine 1.20 mg/dL (0.55-1.3) 11/11/17 05:25 Glucose 127 mg/dL (74-106) H 11/11/17 05:25 Total Bilirubin 0.5 mg/dL (0.2-1.0) 11/11/17 05:25 AST 15 U/L (15-37) 11/11/17 05:25 ALT 21 U/L (12-78) 11/11/17 05:25 Alkaline Phosphatase 62 U/L (45-117) 11/11/17 05:25 Triglycerides 179 mg/dL (<150) H 11/11/17 05:25 Cholesterol 126 mg/dL (<200) 11/11/17 05:25 HDL Cholesterol 24 mg/dL (40-60) L 11/11/17 05:25 Cholesterol/HDL Ratio 5.25 11/11/17 05:25 Home Medications: Amlodipine [Norvasc*] 1 tab PO DAILY 10/20/16 Atorvastatin Calcium 1 tab PO DAILY AT SUPPER 10/20/16 Lisinopril [Prinivil*] 40 mg PO DAILY tab 10/29/16 Carvedilol [Coreg*] 25 mg PO BID 01/05/17 hydroCHLOROthiazide [Hydrodiuril*] 25 mg PO DAILY 01/05/17 Hydralazine HCl [Apresoline] 100 mg PO TID 11/10/17 Insulin 70/30 NPH/Reg Human [Novolin 7030*] 20 unit SQ BID 11/10/17 Medihoney [Medihoney Woundcare Gel] 1 appl TOP DAILY 11/10/17 Aspirin Chewable [Aspirin Chewable*] 81 mg PO DAILY #30 tab.chew 11/11/17 New Medications: Aspirin Chewable [Aspirin Chewable*] 81 mg PO DAILY #30 tab.chew Diet: ADA Activity: Ad enrico Followup: Jude Frye MD [ASSOCIATE-ACTIVE - CAN ADMIT] - (Follow up in clinic in 1 month) Geo Quinn MD [ACTIVE - CAN ADMIT] - (Follow up in 2 weeks) Time spent managing pt's care (in minutes): 50
== END 2017-11-11 20:35 | disposition home or self-care (01) ==
LOC: ER 11:18 → ERHOLD 14:47 → 2ND 16:08
PROVIDERS: ADMIT Internal Medicine; ATTEND Internal Medicine
DX: G45.9 Transient cerebral ischemic attack, unspecified (principal); N17.9 Acute kidney failure, unspecified; E11.9 Type 2 diabetes mellitus without complications; I10 Essential (primary) hypertension; E78.5 Hyperlipidemia, unspecified; F17.210 Nicotine dependence, cigarettes, uncomplicated; Z89.422 Acquired absence of other left toe(s)
CPT/HCPCS: 36415 ×2; 70450; 70551; 80048; 80053; 80061; 81003; 82962 ×7; 83036; 84443; 85025 ×2; 85652; 86140; 96361; 96374; 96375; 99285; G0378 ×2; J1650 ×2; J2765 ×3; J3010; J7030 ×4

== ENCOUNTER 2018-11-28 09:03 | Inpatient (IN) | payer MEDICARE ==
[2018-11-28] MEDS ORDERED: ASPIRIN 81 MG CHEWABLE TABLET ONE (09:41)
[2018-11-28] MEDS ORDERED: CLOPIDOGREL 75 MG TABLET ONE (09:44)
[2018-11-28 09:47] LABS: Absolute Lymphocytes (CBC) 1.9 K/uL (0.7-4.9); Eosinophils % 2.6 % (0-4.4); Hematocrit 42.7 % (39.6-49.0); Lymphocytes % 30.9 % (15.3-44.8); MPV 10.3 fL (7.6-11.3); Monocytes % 6.2 % (3.3-12.3); RBC Red Blood Cell Count 4.99 M/uL (4.33-5.43)
--- OUTSIDE RECORDS SUMMARY | 2018-11-28 09:48 | XMS REPORT ---
:1965 [facility] Address [address] [place] [address] Care Team Providers Name Role Phone Unavailable Unavailable Unavailable Problems This patient has no known problems. Allergies, Adverse Reactions, Alerts This patient has no known allergies or adverse reactions. Medications This patient has no known medications.
[2018-11-28] MEDS ORDERED: HEPARIN 5000 UNIT/ML 1 ML VIAL ONE (10:01)
[2018-11-28] MEDS ORDERED: TENECTEPLASE 50 MG/10 ML VIAL IV ONE (10:02)
[2018-11-28] MEDS ORDERED: HEPARIN/D5W 25,000 UNIT/500 ML BAG IV ONE (10:02)
[2018-11-28 10:04] LABS: Protime INR 0.87
--- NOTE | 2018-11-28 10:07 | EDPHYS ---
Physician Documentation [facility] Name: Orlando Burris Age: 53 yrs Sex: Male : 1965 Arrival Date: 11/28/2018 Time: 09:08 Bed 16 Private MD: None, None ED Physician Edgar Bill HPI: 11/28 09:30 This 53 yrs old Male presents to ER via Wheelchair with complaints of General cp Weakness. 09:30 general weakness. cp 09:30 Onset: The symptoms/episode began/occurred suddenly, today. Severity of symptoms: in cp the emergency department the symptoms are unchanged. Historical: - Allergies: 09:27 NKDA; bp - Home Meds: 09:27 amlodipine 10 mg tab 1 tab once daily [Active]; atorvastatin 40 mg Oral tab 1 tab once bp daily [Active]; Butalbital Compound 50-325-40 mg Oral tab 1 tab every 4 hours [Active]; - PMHx: 09:27 Diabetes - IDDM; High Cholesterol; Hypertension; bp - Immunization history:: Adult Immunizations up to date. - Social history:: Smoking status: Patient/guardian denies using tobacco. - Ebola Screening: : No symptoms or risks identified at this time. ROS: 09:35 Constitutional: Negative for body aches, chills, fever, poor PO intake. cp 09:35 Eyes: Negative for injury, pain, redness, and discharge. cp 09:35 ENT: Negative for drainage from ear(s), ear pain, sore throat, difficulty swallowing, difficulty handling secretions. 09:35 Cardiovascular: Negative for chest pain, palpitations. 09:35 Respiratory: Negative for cough, shortness of breath, wheezing. 09:35 Abdomen/GI: Negative for abdominal pain, nausea, vomiting, and diarrhea, constipation, black/tarry stool, rectal bleeding. 09:35 : Negative for urinary symptoms. 09:35 Skin: Negative for cellulitis, rash. 09:35 Neuro: Positive for weakness, Negative for dizziness, headache, speech changes. 09:35 All other systems are negative. Exam: 09:40 Constitutional: The patient appears in no acute distress, alert, awake, cp non-diaphoretic, non-toxic, well developed, well nourished. 09:40 Head/Face: Normocephalic, atraumatic. cp 09:40 Eyes: Periorbital structures: appear normal, Pupils: equal, round, and reactive to light and accomodation, Conjunctiva: normal, no exudate, no injection, Sclera: no appreciated abnormality, Lids and lashes: appear normal, bilaterally. 09:40 ENT: External ear(s): are unremarkable, Nose: is normal, Mouth: is normal, Posterior pharynx: Airway: no evidence of obstruction, patent. 09:40 Neck: ROM/movement: is normal, is supple, no range of motions limitations, no meningismus, no nuchal rigidity. 09:40 Chest/axilla: Inspection: normal, Palpation: is normal, no crepitus, no tenderness. 09:40 Cardiovascular: Rate: normal, Rhythm: regular, JVD: is not appreciated. 09:40 Respiratory: the patient does not display signs of respiratory distress, Respirations: normal, no use of accessory muscles, no retractions, no splinting, no tachypnea, labored breathing, is not present. 09:40 Abdomen/GI: Inspection: abdomen appears normal, Palpation: abdomen is soft and non-tender, in all quadrants, involuntary guarding, is not appreciated. 09:40 Skin: no rash present. 09:40 Neuro: Orientation: to person, place, situation, Mentation: slow to respond, Cerebellar function: is grossly normal, Motor: moves all fours, strength is normal, Sensation: no obvious gross deficits. Vital Signs: 09:27 BP 95 / 62; Pulse 68; Resp 16; Pulse Ox 98% ; Weight 106.14 kg; Height 6 ft. 1 in. bp (185.42 cm); 09:56 BP 109 / 65; Pulse 67; Resp 16; Temp 97; Pulse Ox 97% ; bp 09:27 Body Mass Index 30.87 (106.14 kg, 185.42 cm) bp MDM: 09:18 Patient medically screened. cp 09:30 Differential Diagnosis altered mental status, sepsis, acute MT, CVA. cp 09:35 Physician consultation: Isac Fragoso MD was contacted at 09:30, regarding consult, cp patient's condition, would like patient to be given bolus heparin and placed on heparin drip and admitted to ICU. 10:00 Data reviewed: vital signs, nurses notes, EKG, I have discussed the patient's cp presentation/case with the attending Emergency Department Physician; and as a result, I will admit patient. 11/28 09:28 Order name: Basic Metabolic Panel cp 11/28 09:28 Order name: CBC with Diff cp 11/28 09:28 Order name: LFT's cp 11/28 09:28 Order name: Magnesium cp 11/28 09:28 Order name: NT PRO-BNP cp 11/28 09:28 Order name: PT-INR cp 11/28 09:28 Order name: Troponin (emerg Dept Use Only) cp 11/28 09:28 Order name: XRAY Chest (1 view) cp 11/28 09:28 Order name: Basic Metabolic Panel EDMS 11/28 09:28 Order name: CBC with Automated Diff EDMS 11/28 09:28 Order name: EKG; Complete Time: 09:29 cp 11/28 09:28 Order name: Cardiac monitoring; Complete Time: 09:36 cp 11/28 09:28 Order name: EKG - Nurse/Tech; Complete Time: 09:36 cp 11/28 09:28 Order name: IV Saline Lock; Complete Time: 09:36 cp 11/28 09:28 Order name: Labs collected and sent; Complete Time: 09:36 cp 11/28 09:28 Order name: O2 Per Protocol; Complete Time: 09:36 cp 11/28 09:28 Order name: O2 Sat Monitoring; Complete Time: 09:36 cp 11/28 09:30 Order name: EKG; Complete Time: 09:30 em1 Administered Medications: 09:30 Drug: Aspirin Chewable Tablet 324 mg Route: PO; ss 10:04 Follow up: Response: No adverse reaction ss 09:36 Drug: PlaVIX 300 mg Route: PO; ss 10:05 Follow up: Response: No adverse reaction ss 09:44 CANCELLED (Physician Discretion): Heparin (DVT/PE- Bolus per protocol) - HEParin 80 cp units/kg IVP once; Max 8,000 units 10:04 Drug: NS 0.9% 1000 ml Route: IV; Rate: 1 bolus; Site: left forearm; ss 10:05 Follow up: IV Status: Infusion continued upon admission ss 10:04 Not Given (Physician Discretion; pt to cath lab nurse now): Heparin ([place] Drip) 12 units/kg/hr ss - (HEParin 47964 units, D5W 500 ml) IV at calculated rate Per protocol; Max initial rate 1000 units/hr 10:04 Not Given (Patient going to cath lab nurse now): Tenecteplase 50 mg IV at calculated rate oncess 10:04 CANCELLED (per physician request. Pt going to cath lab nurse now): Heparin (MT-Bolus with ss thrombolytic) - HEParin 60 units/kg IVP once; Max 4000 units Disposition: 18:52 Co-signature as Attending Physician, Edgar Bill MD I agree with the assessment and ps1 plan of care. Attestation: The patient's history, exam findings, diagnostics, and a summary of any interventions or procedures was reviewed in detail with Federico MARTÍNEZ. Disposition: 11/28/18 10:06 Hospitalization ordered by Jose Raul Palafox for Inpatient Admission. Preliminary diagnosis is ST elevation (STEMI) myocardial infarction of other sites. - Bed requested for Field Court Researcher. - Status is Inpatient Admission. ss - Condition is Stable. - Problem is new. - Symptoms have improved. UTI on Admission? No Signatures: Dispatcher [employer] EDKatie Carlson RN RN aa5 Jimena Verma RN RN ss Page, Corey, PA PA cp Peltier, Brian, FRANCISCO RN Edgar Myers MD MD ps1 Corrections: (The following items were deleted from the chart) 09:44 09:33 Heparin (DVT/PE- Bolus per protocol) - HEParin 80 units/kg IVP once; Max 8,000 cp units ordered. cp 10:04 09:49 Heparin (MT-Bolus with thrombolytic) - HEParin 60 units/kg IVP once; Max 4000 ss units ordered. cp 10:10 10:06 Hospitalization Ordered by Jose Raul Palafox MD for Inpatient Admission. Preliminary ss diagnosis is ST elevation (STEMI) myocardial infarction of other sites. Bed requested for Field Court Researcher. Status is Inpatient Admission. Condition is Stable. Problem is new. Symptoms have improved. UTI on Admission? No. cp
--- NOTE | 2018-11-28 10:07 | ER ---
Nurse's Notes [facility] Name: Orlando Burris Age: 53 yrs Sex: Male : 1965 Arrival Date: 11/28/2018 Time: 09:08 Bed 16 Private MD: None, None Diagnosis: ST elevation (STEMI) myocardial infarction of other sites Presentation: 11/28 09:23 Presenting complaint: Patient states: BROUGHT TO HOSPITAL BY NEIGHBOR FOR DR rendon APPOINTMENT, DEVELOPED PROFOUND WEAKNESS AND DIAPHORESIS ON ARRIVAL. Transition of care: patient was not received from another setting of care. Onset of symptoms was November 28, 2018 at 09:00. Risk Assessment: Do you want to hurt yourself or someone else? Patient reports no desire to harm self or others. Initial Sepsis Screen: Does the patient meet any 2 criteria? No. Patient's initial sepsis screen is negative. Does the patient have a suspected source of infection? No. Patient's initial sepsis screen is negative. Care prior to arrival: None. 09:23 Method Of Arrival: Wheelchair bp 09:23 Acuity: NIRAJ 1 bp Triage Assessment: 09:27 General: Appears distressed, uncomfortable, obese, unkempt, Behavior is cooperative, bp appropriate for age, drowsy, listless. Pain: Denies pain. EENT: No deficits noted. Neuro: Level of Consciousness is lethargic, Oriented to person. Cardiovascular: Rhythm is sinus rhythm STEMI ON EKG. Respiratory: No deficits noted. GI: No signs and/or symptoms were reported involving the gastrointestinal system. : No signs and/or symptoms were reported regarding the genitourinary system. Derm: No deficits noted. Musculoskeletal: Circulation, motion, and sensation intact. GENERALIZED WEAKNESS. Historical: - Allergies: : NKDA; bp - Home Meds: : amlodipine 10 mg tab 1 tab once daily [Active]; atorvastatin 40 mg Oral tab 1 tab once bp daily [Active]; Butalbital Compound 50-325-40 mg Oral tab 1 tab every 4 hours [Active]; - PMHx: 09: Diabetes - IDDM; High Cholesterol; Hypertension; bp - Immunization history:: Adult Immunizations up to date. - Social history:: Smoking status: Patient/guardian denies using tobacco. - Ebola Screening: : No symptoms or risks identified at this time. Screenin:34 Abuse screen: Denies threats or abuse. Denies injuries from another. Nutritional bp screening: No deficits noted. Tuberculosis screening: No symptoms or risk factors identified. Fall Risk No fall in past 12 months (0 pts). No secondary diagnosis (0 pts). IV access (20 points). Ambulatory Aid- Crutches/Cane/Walker (15 pts). Gait- Weak (10 pts.). Mental Status- Overestimates/Forgets Limitations (15 pts.). Total Ge Fall Scale indicates High Risk Score (45 or more points). Fall prevention measures have been instituted. Side Rails Up X 2 Placed Close to Nursing Station Frequent Obs/Assessments Occuring As available patient and family educated on Fall Prevention Program and Strategies. Assessment: 09:10 General: Appears uncomfortable, ill, unkempt. Pain: Denies pain. Neuro: Level of ss Consciousness is confused, lethargic, listless, Oriented to person, Speech is normal, Pupils are PERRLA. Cardiovascular: Reports dizziness when trying to stand. Patient reports that all of his symptoms began 30 minutes prior to arrival. Denies chest pain, Heart tones S1 S2 present Capillary refill is > 3 seconds is sluggish in bilateral fingers Chest pain is denied. Respiratory: Airway is patent Respiratory effort is even, unlabored, Respiratory pattern is regular, symmetrical. GI: Abdomen is round non-distended, Patient currently denies diarrhea, nausea, vomiting. EENT: Throat is clear. Derm: Skin is diaphoretic, Skin is pale, Skin temperature is cool. Musculoskeletal: Circulation, motion, and sensation intact. Range of motion: intact in all extremities, Swelling absent. 09:32 General: STEMI ON EKG, AT B/S. bp 09:50 Reassessment: Sheri Elmore, Sister called per patient request notified of patient's plan of care. Verbalizes understanding. Pt is grateful. 09:55 Reassessment: Barrel Tester staff here to prepare and transport patient to CTO. ss 09:57 Reassessment: CTO AT B/. PT [place] WITH CTO PERSONNEL. bp 10:00 Pain: Denies pain. Neuro: Level of Consciousness is awake, alert, obeys commands, ss Oriented to person, place, situation. Cardiovascular: Pulses are palpable in right radial artery, right posterior tibial artery, left radial artery and left posterior tibial artery. Respiratory: Airway is patent Respiratory effort is even, unlabored, Respiratory pattern is regular, symmetrical. Derm: Skin is dry, Skin is normal, Skin temperature is warm. Vital Signs: 09:27 BP 95 / 62; Pulse 68; Resp 16; Pulse Ox 98% ; Weight 106.14 kg; Height 6 ft. 1 in. bp (185.42 cm); 09:56 BP 109 / 65; Pulse 67; Resp 16; Temp 97; Pulse Ox 97% ; bp 09:27 Body Mass Index 30.87 (106.14 kg, 185.42 cm) bp ED Course: 09:08 Patient arrived in ED. rg4 09:08 None, None is Private Physician. rg4 09:11 [facility] cp 09:11 Edgar Bill MD is Attending Physician. cp 09:11 Oni Anne, FRANCISCO is Primary Nurse. bp 09:25 Triage completed. bp 09:27 Arm band placed on. EKG completed in triage. Results shown to MD. bp 09:32 Inserted saline lock: 20 gauge in left forearm, using aseptic technique. Blood bp collected. 09:34 Patient has correct armband on for positive identification. Placed in gown. Bed in low bp position. Call light in reach. Side rails up X2. alarm security or surveillance monitor on. Pulse ox on. NIBP on. 09:39 EKG done, by turbine technician. reviewed by Federico MARTÍNEZ. at1 09:39 EKG done, by turbine technician. reviewed by Edgar Bill MD Repeat EKG. at1 09:53 XRAY Chest (1 view) In Process Unspecified. EDMS 09:56 Inserted saline lock: 22 gauge in right hand, using aseptic technique. bp 10:00 Isac Fragoso MD is Hospitalizing Provider. cp 10:04 Jose Raul Palafox MD is Hospitalizing Provider. cp 10:05 No provider procedures requiring assistance completed. Patient admitted, IV remains in ss place. Administered Medications: 09:30 Drug: Aspirin Chewable Tablet 324 mg Route: PO; ss 10:04 Follow up: Response: No adverse reaction ss 09:36 Drug: PlaVIX 300 mg Route: PO; ss 10:05 Follow up: Response: No adverse reaction ss 09:44 CANCELLED (Physician Discretion): Heparin (DVT/PE- Bolus per protocol) - HEParin 80 cp units/kg IVP once; Max 8,000 units 10:04 Drug: NS 0.9% 1000 ml Route: IV; Rate: 1 bolus; Site: left forearm; ss 10:05 Follow up: IV Status: Infusion continued upon admission ss 10:04 Not Given (Physician Discretion; pt to blood bank laboratory professional now): Heparin ([place] Drip) 12 units/kg/hr ss - (HEParin 64150 units, D5W 500 ml) IV at calculated rate Per protocol; Max initial rate 1000 units/hr 10:04 Not Given (Patient going to blood bank laboratory professional now): Tenecteplase 50 mg IV at calculated rate oncess 10:04 CANCELLED (per physician request. Pt going to blood bank laboratory professional now): Heparin (NV-Bolus with ss thrombolytic) - HEParin 60 units/kg IVP once; Max 4000 units Outcome: 10:05 Admitted to [facility] accompanied by nurse, accompanied by tech, via stretcher, on ss monitor, with chart. 10:05 Condition: stable 10:05 Instructed on the need for admit. 10:06 Decision to Hospitalize by Provider. cp 10:10 Patient left the ED. ss Signatures: Dispatcher [employer] EDMS Jimena Verma RN RN ss Vesna Johnston, electrical engineering technologist EKG Tat1 Federico Pop PA PA cp Garcia, Rubi rg4 Oni Anne, RN RN bp Corrections: (The following items were deleted from the chart) 09:33 09:27 BP 95 / 62; Pulse 68bpm; Resp 16bpm; Pulse Ox 98%; 90.72 kg; bp bp
[2018-11-28 10:10] LABS: ALT/SGPT 19 U/L (12-78); AST/SGOT 20 U/L (15-37); Albumin 2.9 g/dL (3.4-5.0); Alkaline Phosphatase 108 U/L (45-117); BUN Blood Urea Nitrogen 25 mg/dL (7-18); Bicarbonate 27 mmol/L (21-32); Bilirubin Direct < 0.1 mg/dL (0-0.2); Bilirubin Total 0.5 mg/dL (0.2-1.0); Magnesium 2.3 mg/dL (1.8-2.4); NT PRO-BNP 4823 pg/mL (<125); Potassium 4.2 mmol/L (3.5-5.1); Protein, Total 7.2 g/dL (6.4-8.2); Sodium Level 140 mmol/L (136-145); Troponin (Emerg Dept Use Only) 0.03 ng/mL (0.0-0.045)
[2018-11-28] MEDS ORDERED: NA CHLORIDE 0.9% 1,000 ML ONE (10:11)
--- NOTE | 2018-11-28 10:11 | RAD REPORT ---
EXAM DESCRIPTION: RAD - Chest Single View - 11/28/2018 9:54 am CLINICAL HISTORY: Weakness, diaphoretic, hypertension COMPARISON: March 2017 TECHNIQUE: AP portable chest image was obtained 0950 hours . FINDINGS: Lung volumes are low. This accentuates the baseline interstitial pattern. No focal mass or consolidation. No significant failure or volume overload. Minimal interstitial edema or infiltrate c ould be masked by the shallow inspiration and portable technique. Heart and vasculature are normal. No measurable pleural effusion and no pneumothorax. No acute bony abnormality seen. No acute aortic findings suspected. IMPRESSION: Limited shallow inspiration chest film not substantially different from 2017. Shallow inspiration accentuates baseline interstitial pattern potentially masking earliest stages of interstitial edema or infiltrate.
[2018-11-28 10:13] LABS: Glucose Level 508 mg/dL (74-106)
[2018-11-28] MEDS ORDERED: LIDOCAINE 1% 20 ML MDV ONE (10:32)
[2018-11-28] MEDS ORDERED: MIDAZOLAM HCL 2 MG/2 ML INJ ONE ×2 (10:32→10:51)
[2018-11-28] MEDS ORDERED: HEPA 1000U/500MLS 2,000 UNIT/1,000 ML BAG IV ONE (10:32)
[2018-11-28] MEDS ORDERED: FENTANYL CITR 100 MCG/2 ML ONE ×2 (10:33→10:52)
[2018-11-28] MEDS ORDERED: ATROPINE SULF 1 MG/10 ML SYR IV ONE (10:33)
[2018-11-28] MEDS ORDERED: NA CHLORIDE 0.9% 50 ML ONE (10:33)
[2018-11-28] MEDS ORDERED: NITROGLYCERIN/D5W 25 MG/250 ML BTL IV ONE (10:33)
[2018-11-28] MEDS ORDERED: NITROGLYCERIN 100 MCG/ML SYR (for cath lab use only) IV ONE (10:33)
[2018-11-28] MEDS ORDERED: ONDANSETRON 4 MG/2 ML VIAL IV PRN (11:01)
[2018-11-28] MEDS ORDERED: MORPHINE 2 MG/ML SYR IV PRN (11:01)
[2018-11-28] MEDS ORDERED: ACETAMINOPHEN 500 MG TAB PO PRN (11:01)
[2018-11-28] MEDS ORDERED: NITROGLYCERIN 0.4 MG/TAB SL PRN (11:01)
[2018-11-28] MEDS ORDERED: INSULIN -REGULAR HUMAN 50 UNIT/0.5 ML ML SQ SCH (11:30)
--- NOTE | 2018-11-28 12:49 | EKG ---
Test Date: 2018-11-28 Test Time: 09:26:39 Selling Specialist: [place] MEASUREMENT RESULTS: Intervals: Rate: 67 IN: 220 QRSD: 72 QT: 436 QTc: 460 [place]: P: 38 IN: 220 QRS: -29 T: 157 INTERPRETIVE STATEMENTS: Sinus rhythm with 1st degree AV block Inferior infarct, age undetermined early repolarization...nst Abnormal ECG Compared to ECG 11/28/2018 09:19:45 ST (T wave) deviation no longer present Electronically Signed On 11-28-18 12:48:49 CDT by Isac Fragoso
--- NOTE | 2018-11-28 12:50 | EKG ---
Test Date: 2018-11-28 Test Time: 09:19:45 Learning And Development Assistant: [place] MEASUREMENT RESULTS: Intervals: Rate: 68 MT: 220 QRSD: 74 QT: 432 QTc: 459 [place]: P: 38 MT: 220 QRS: -29 T: 160 INTERPRETIVE STATEMENTS: Sinus rhythm with 1st degree AV block nstbnormal ECG Compared to ECG 03/30/2014 07:12:48 First degree AV block now present ST (T wave) deviation now present Electronically Signed On 11-28-18 12:49:14 CDT by Isac Fragoso
[2018-11-28] MEDS ORDERED: INSULIN -REGULAR HUMAN 50 UNIT/0.5 ML ML SQ ONE ×2 (13:01→15:41)
[2018-11-28] MEDS ORDERED: INSULIN -REGULAR HUMAN 50 UNIT/0.5 ML ML ONE (13:26)
[2018-11-28] MEDS ORDERED: ACETYLCYST 20% 800 MG/4 ML VIAL PO ONE (15:37)
[2018-11-28] MEDS ORDERED: GLUCAGON 1 MG/VIAL IM PRN (15:38)
[2018-11-28] MEDS ORDERED: D50W 25 GM/50 ML SYRINGE IV PRN (15:38)
[2018-11-28] MEDS: NA CHLORIDE 0.9% 1,000 ML IV SCH (15:55)
[2018-11-28 15:58] VITALS: BMI 32.0
[2018-11-28] MEDS: INSULIN -REGULAR HUMAN 50 UNIT/0.5 ML ML SQ SCH ×2 (17:16→21:00)
[2018-11-28] MEDS ORDERED: INSULIN GLARGINE 100 UNITS/ML SQ SCH (21:00)
[2018-11-28] MEDS: ATORVASTATIN 80 MG TAB PO SCH (22:59)
[2018-11-28] MEDS: METOPROLOL TAR 25 MG TAB PO SCH (22:59)
[2018-11-28 23:35] LABS: Urine Appearance CLEAR; Urine Bilirubin NEGATIVE (NEG); Urine Blood NEGATIVE (NEG); Urine Color YELLOW; Urine Glucose 3+ (NEG); Urine Protein 2+ (NEG); Urine Specific Gravity >=1.030 (1.005-1.030); Urine Urobilinogen 0.2 mg/dL (0.2-1.0)
[2018-11-28 23:36] LABS: Urine Microscopic Reflex NO UMIC
[2018-11-29] MEDS: NA CHLORIDE 0.9% 1,000 ML IV SCH ×3 (00:38→20:19)
--- NOTE | 2018-11-29 02:14 | HP ---
Date of Admission: 11/28/2018 Consultants: Dr. Fragoso with Cardiology. Primary Care Physician: Out of town. Chief Complaint: Syncope, acute PA. History Of Present Illness: The patient is a 53-year-old male with past medical history of diabetes mellitus type 2, insulin requiring; multiple foot wounds, who has [facility]; obesity; hypertension, who was in his usual state of health until day of admission when the patient came in for a routine [facility] appointment. The patient remembers getting into his friend's car, being driven to the hospital to go to [facility]. He does state that he took all of his blood pressure medications, insulin, and hyperglycemics, however, did not get a chance to eat as his ride came in early. The patient does not recall getting out of the car to the ER, but apparently he had a syncopal episode, was nonresponsive for unknown period of time. The patient was taken directly to the ER. His initial workup revealed a blood glucose level of 508. His creatinine was 1.92. Initial troponin was negative. White blood cell count was also normal. The patient's EKG showed acute PA in the anterior leads and therefore was taken to the rn lab by Cardiology. The patient was seen after the heart catheterization. He continues to have elevated blood sugar in the 500s despite treatment. He never complained of any chest pain. Speaking with Dr. Fragoso, he found minimal coronary artery disease. No stents were placed during the heart catheterization. No angioplasty. The patient was then transferred to the floor. When seen on the floor, he was awake, alert, oriented x3, frustrated that his TV does not work in the room, does not complain of any chest pain. Past Medical History: Hypertension; hyperlipidemia; diabetes mellitus type 2, insulin requiring; neuropathy; chronic wounds. Surgical History: Abscess I and D of the buttocks, left third toe amputation. Allergies: NO KNOWN DRUG ALLERGIES. THE PATIENT IS ALLERGIC TO CACTUS THORNS. Social History: The patient is a former smoker. Does use alcohol occasionally. No illicit drug use. Lives at home with sister and nephew. Has good social support. Does not require any assistive ambulatory devices. Family History: Father had hypertension. Review of Systems: Ten-point system reviewed, negative except as per HPI. Physical Examination: Vital Signs: Temperature 97, heart rate 68, blood pressure 95/62, respirations 16, O2 98% on room air. General: Awake, alert, oriented x3, not in any acute distress. Obese male. HEENT: Normocephalic, atraumatic. PERRLA. EOMI. Moist mucous membranes. Poor dentition. Conjunctivae anicteric. Oropharynx is clear. Neck: Supple. No JVD. Trachea midline. CV: S1, S2. Regular rate and rhythm. Peripheral pulses present. Respiratory: Moving air well bilaterally. No wheezing or stridor. No use of accessory muscles. Gastrointestinal: Abdomen is soft, nontender, nondistended. Positive bowel sounds. No guarding or rigidity. Extremities: No clubbing, cyanosis, or edema. No calf tenderness. Neuro: Cranial nerves 2 through 12 intact grossly. No focal neurological deficit. Speech is normal. The patient does have decreased sensation to light touch in the lower extremities. Skin: No rashes. Normal skin turgor. The patient has diabetic foot wounds on the palmar aspect of both feet. The right foot has a grade 2 with opening with some depth to the wound. Left foot palmar aspect has central necrosis, dry ulcer. PSYCH: Mood is okay. Affect is full. Insight and judgment are good. Laboratory Data: WBC 6, H and H 13.9 and 42.7, platelets 241, neutrophils 59% INR 0.87. Sodium 140, potassium 4.2, chloride 105, CO2 27, BUN 25, creatinine 1.92, glucose 508, calcium 8.8, magnesium 2.3, troponin 0.03, BNP 4823, albumin 2.9. EKG shows sinus rhythm with first-degree AV block, ST deviation in anterior leads present, acute PA. Repeat EKG showed sinus rhythm with first- degree AV block, inferior infarct, age indeterminate, early repolarization compared to EKG #1. ST deviation no longer present, rate of 67. Chest x-ray personally reviewed shows limited shallow inspiration. Chest film not substantially different from 2017. Baseline interstitial pattern potentially masking early stages of interstitial edema or infiltrate. Assessment/plan: A 53-year-old male with: 1. ST elevation myocardial infarction status post cardiac catheterization with minimal plaquing found. No stents were placed. Appreciate Dr. Fragoso's input. We will continue with chest pain guidelines. Initial troponin level was negative. We will not repeat troponin level due to cardiac catheterization as this will be falsely elevated. 2. Syncope, unclear etiology. We will check CT scan of the head, may be related to hyperglycemia or possibly hypotension. The patient's blood glucose on arrival was within the 500s on BMP. However, he was hypotensive. 3. Diabetes mellitus type 2, insulin requiring with severe hyperglycemia. Anion gap is closed. We will adjust insulin dose. Switch to moderate scale sliding scale insulin. Check hemoglobin A1c. 4. Multiple diabetic foot ulcerations. The patient currently is on p.o. antibiotics. Wounds do not appear to be infected. We will consult Dr. Perez from [facility] for possible debridement if needed. 5. Essential hypertension, currently hypotensive. We will hold blood pressure medications for now. 6. Mixed hyperlipidemia. We will continue statin. 7. Diabetic neuropathy. 8. Obesity, BMI 32. Plan: Admit the patient to Med-Surg, place as inpatient. Length of stay greater than 2 midnights. ALY Voice ID: [id number]
[2018-11-29 04:59] LABS: Basophils % 1.3 % (0-1.3); Eosinophils % 2.3 % (0-4.4); Hematocrit 39.8 % (39.6-49.0); Lymphocytes % 33.4 % (15.3-44.8); Monocytes % 6.1 % (3.3-12.3); RBC Red Blood Cell Count 4.71 M/uL (4.33-5.43)
[2018-11-29 05:15] LABS: Albumin 2.9 g/dL (3.4-5.0); Bilirubin Total 0.7 mg/dL (0.2-1.0); Potassium 3.6 mmol/L (3.5-5.1); Protein, Total 6.8 g/dL (6.4-8.2)
[2018-11-29] MEDS: INSULIN -REGULAR HUMAN 50 UNIT/0.5 ML ML SQ SCH ×4 (08:27→20:22)
[2018-11-29] MEDS: ASPIRIN 325 MG TAB PO SCH (08:28)
[2018-11-29] MEDS: METOPROLOL TAR 25 MG TAB PO SCH ×2 (08:28→20:21)
[2018-11-29] MEDS: ENOXAPARIN 40 MG/0.4 ML SQ SCH (08:29)
--- NOTE | 2018-11-29 08:37 | P.CNS ---
Date of Consult: 11/29/18 Reason for Consult: wound right foot Requesting Physician: Jose Raul Palafox Chief Complaint: Patient was admitted for possible LA Allergies No Known Drug Allergies Allergy (Verified 10/19/16 21:36) Unknown cactus thorns Allergy (Severe, Uncoded 10/19/16 21:36) Itching/Hives/Rash Home Medications: Amlodipine [Norvasc*] 1 tab PO DAILY 10/20/16 Atorvastatin Calcium 1 tab PO DAILY AT SUPPER 10/20/16 Carvedilol [Coreg*] 12.5 mg PO BID 01/05/17 hydroCHLOROthiazide [Hydrodiuril*] 25 mg PO DAILY 01/05/17 Hydralazine HCl [Apresoline] 100 mg PO TID 11/10/17 Insulin 70/30 NPH/Reg Human [Novolin 70/30*] 20 unit SQ BID 11/10/17 Aspirin Chewable [Aspirin Chewable*] 81 mg PO DAILY #30 tab.chew 11/11/17 Amitriptyline [Elavil*] 1 tab PO BEDTIME 11/28/18 Gabapentin [Neurontin] 100 mg PO TID 11/28/18 Lisinopril [Prinivil*] 20 mg PO DAILY 11/28/18 Metoprolol Tartrate 1 tab PO BID 11/28/18 - Past Medical/Surgical History Diabetic: Yes -: IDDM -: HTN -: CAD -: Neuropathy -: abcess I&D of buttocks -: Left 3rd toe amputation -: left eye laser surgery - Family History Father Medical History: Hypertension - Social History Smoking Status: Current every day smoker Alcohol use: No CD- Drugs: No Caffeine use: No Place of Residence: Home Review of Systems 10-point ROS is otherwise unremarkable Physical Examination Temp Pulse Resp BP Pulse Ox 98.9 F 67 16 140/80 98 11/29/18 04:00 11/29/18 08:28 11/29/18 04:00 11/29/18 08:28 11/29/18 04:00 General: Alert, In no apparent distress, Oriented x3 Cardiovascular: No edema, Normal pulses Capillary refill: <2 Seconds Musculoskeletal: No clubbing, No swelling, No contractures, No erythema, No tenderness, No warmth Integumentary: Diabetic ulcer (ulceration plantar right fourth intermetatarsal space is stable with no drainage, no erythema, no edema. Darkened in nature with possible eschar. No probing noted. Focal hyperkeratotic lesion plantar left second mpj ) Neurological: Abnormal sensation Laboratory Data (last 24 hrs) 11/28/18 09:30: PT 10.3, INR 0.87 11/28/18 09:30: WBC 6.0, Hgb 13.9, Hct 42.7, Plt Count 241 11/28/18 09:30: Sodium 140, Potassium 4.2, BUN 25 H, Creatinine 1.92 H, Glucose 508 H*, Magnesium 2.3, Total Bilirubin 0.5, AST 20, ALT 19, Alkaline Phosphatase 108 - Problems (1) Diabetic foot ulcer Onset Date: 08/28/15 Current Visit: Yes Status: Acute Plan: Santyl to right foot wound daily with saline moistened gauze. Patient to follow up with Dr. Perez in wound care 12/05/18 Qualifiers: Diabetic foot ulcer location: other Diabetes mellitus type: type 2 Laterality: right Non-pressure ulcer stage: with fat layer exposed Qualified Code(s): E11.621 - Type 2 diabetes mellitus with foot ulcer; L97.512 - Non-pressure chronic ulcer of other part of right foot with fat layer exposed Critical Care: No
[2018-11-29 09:05] VITALS: O2SAT 96
[2018-11-29] MEDS: COLLAGENASE 30 GM OINTMENT TOP SCH (09:15)
--- NOTE | 2018-11-29 09:38 | RAD REPORT ---
EXAM DESCRIPTION: CT - Head Brain Wo Cont - 11/29/2018 6:43 am CLINICAL HISTORY: SYNCOPE COMPARISON: None. TECHNIQUE: CT HEAD WITHOUT IV CONTRAST on 11/29/2018 12:00 AM CDT This exam was performed according to our departmental dose-optimization program, which includes autom ated exposure control, adjustment of the mA and/or kV according to patient size and/or use of iterati ve reconstruction technique. FINDINGS: There is no acute hemorrhage, mass effect or midline shift. Gregory-white differentiation is preserved. There is no hydrocephalus. There is no significant volume loss for age. The calvarium is intact. Orbits and globes are unremarkable. The paranasal sinuses are clear. Mastoid air cells are clear. IMPRESSION: No acute intracranial findings. Electronically signed by: Shaheed Franz MD 11/29/2018 5:04 AM CDT Due to temporary technical issues with the PACS/Fluency reporting system, reports are being signed by the in house radiologist as a courtesy to ensure prompt reporting. The interpreting radiologist is f ully responsible for the content of the report.
--- NOTE | 2018-11-29 11:49 | CON ---
Date of Consultation: 11/28/2018 Reason For Consultation: Possible myocardial infarction. History Of Present Illness: Mr. Burris is a 53-year-old white male, who came into the emergency room with weakness. No chest pain was reported and had some nausea and diaphoresis. He had an EKG that was suspicious for an acute [place] with ST elevation in V1 and V2 when I saw the EKG, however, I thought was early repolarization. His troponin was negative. He had some T-wave inversion in 1 and L. To r esolve that issue, the patient was taken to the [facility] emergently and had a heart catheterization r evealing normal circumflex, normal RCA. He had about 30% stenosis in the mid LAD right before the fi rst diagonal, but definitely no significant atherosclerosis and opts for angioplasty or stent. I bel ieve his main problem was an elevated sugar of over 500. His creatinine was 1.92. His BNP was 4823. He was asymptomatic when I saw him in the [facility]. Past Medical History: Include diabetes, hypertension, neuropathy, dyslipidemia, and obesity. Allergies: NONE. Review of Systems: Negative. Social History: Positive for tobacco. Family History: Negative. Medications: At home include metoprolol, Elavil, Norvasc, insulin, lisinopril, aspirin, hydralazine, Lipitor, Coreg, Neurontin, and hydrochlorothiazide. Physical Examination: General: Mr. Burris was no acute distress when I saw him. Vital Signs: Stable. He was afebrile. HEENT: Negative. Neck: Supple with no bruit. Chest: Clear. Cardiac: Revealed a regular rhythm and rate. No murmurs, gallops, or rubs. Abdomen: Benign. Extremities: No clubbing, cyanosis, or edema. Diagnostic Data: As stated earlier. Impression And Plan: 1.Mild coronary artery disease by catheterization. No acute coronary syndrome. I think his symptom s of diaphoresis and weakness are secondary to severe hyperglycemia with a glucose over 500. 2.Renal insufficiency, stage IV. 3.Elevated BNP, probably secondary to hyperglycemia. 4.Neuropathy. 5.Hypertension. 6.Diabetes. 7.Dyslipidemia. 8.Obesity. 9.Tobacco abuse. I think we need to resume his medication, control his sugar, increase his Lipitor, continue his baby aspirin, send him home under the care with Dr. Palafox. NB/MODL Voice ID: [id number] Report ID: [id number]
--- NOTE | 2018-11-29 12:34 | OP ---
Date of Procedure: 11/28/2018 Surgeon: Isac Fragoso MD Lead Programmer: Bre Camp. Procedure: Left heart catheterization. Indication: Abnormal EKG and atypical chest pain with diaphoresis and weakness. The patient was bro ught to the phlebotomist lab assistant from the emergency room on 11/28/2018. He was prepped and draped in the routine sterile fashion, was given 2 mg of sedation with Versed. 6-Wolof sheath was introduced in the [facility] common femoral artery. Jania catheter was used to do the coronary catheterization. He had a julienne l ostium for the left main and the circumflex. The circumflex was normal. His RCA was normal. He h ad about a 30% to 40% stenosis in the LAD without any thrombus or dissection. Angiography in the [facility] common femoral artery was normal. Six-Wolof sheath was used there. Angio-Seal was used to close the case. There were no complications. Blood Loss: 5 cc. Final Diagnoses: Mild coronary artery disease. Anesthesia: Total conscious sedation was 30 minutes. Plan: Plan is for medical therapy. MOE/MARIANA Voice ID: [id number] Report ID: [id number]
[2018-11-29] MEDS: GABAPENTIN 100 MG CAP PO SCH ×2 (13:32→20:22)
--- NOTE | 2018-11-29 16:14 | RAD REPORT ---
EXAM DESCRIPTION: US - Renal Ultrasound-Complete - 11/29/2018 3:26 pm CLINICAL HISTORY: Acute kidney injury COMPARISON: None. FINDINGS: The right kidney measures 10.0 x 6.4 x 5.4 cm. The left kidney measures 11.8 x 7.0 x 6.0 cm. Renal cortical thickness and echogenicity are normal. No hydronephrosis or suspicious renal mass. No bladder wall thickening or mass. No intraluminal stone or mass. Overall detail is somewhat limited by body habitus. IMPRESSION: No hydronephrosis or suspicious renal mass. No other significant findings.
--- NOTE | 2018-11-29 17:55 | PN ---
Date of Progress Note: 11/29/2018 Subjective: The patient is seen and examined. Chart reviewed and case discussed with RN and Dr. Coombs. The patient denies any acute events overnight. Doing well. The patient was seen by Dr. Perez . Medications list reviewed. Physical Examination: Vital Signs: Temperature 98.4, heart rate 80, blood pressure 141/81, respirations 18, O2 96% on room air. General: Awake, alert oriented x3. No acute distress. Appears older than stated age, obese male. CV: S1, S2. No murmurs. Respiratory: Moving air well bilaterally. No wheezing. Gastrointestinal: Abdomen is soft, nontender, nondistended. Positive bowel sounds. Extremities: No clubbing, cyanosis, or edema. Neurologic: Nonfocal. Decreased sensation to light touch, lower extremities. Skin: The patient has diabetes, ulcers on the palmar aspect of both feet without any acute infectiou s signs. Laboratory Data: Sodium 143, potassium 3.6, chloride 107, CO2 28, BUN 34, creatinine 2, glucose 124, calcium 8.8, albumin 2.9. Triglycerides 216, cholesterol 159, LDL 84, HDL 32. WBC 9, H and H 13.3, 39.8, platelets 255. Assessment And Plan: A 53-year-old male with: 1.ST-elevation myocardial infarction. The patient had cardiac catheterization done, revealed minima l coronary artery disease. Cardiology did not feel that this was acute coronary syndrome. 2.Syncope, unclear etiology. CT head was negative, likely related to hypotension and hyperglycemia. No further episodes. 3.Diabetes mellitus type 2, insulin requiring with severe hyperglycemia, uncontrolled. The patient was started on long-acting insulin last night. We will need to continue to adjust dose. Blood sugar levels were in the 500 yesterday, improved today. 4.Acute kidney injury, likely contrast induced. The patient's creatinine was 1.9 upon admission, no w worsening to 2. We will consult Nephrology. Continue with IV fluids. 5.Diabetic foot ulcer, not acutely infected. We will continue p.o. antibiotics and santyl. Appreci ate Dr. Perez's input. 6.Essential hypertension, stable. Hold ROBIN inhibitor and hydrochlorothiazide. 7.Mixed hyperlipidemia. We will continue statin. 8.Diabetic neuropathy, stable. 9.Obesity, BMI 32. Plan: Nephrology consultation. Likely discharge in 24-48 hours depending on clinical response. The patient has been cleared from Cardiology standpoint. /MARIANA Voice ID: [id number] Report ID: [id number]
--- NOTE | 2018-11-29 19:17 | CON ---
Date of Consultation: 11/29/2018 Reason For Consultation: Elevated BUN and creatinine. History Of Present Illness: This is a 53-year-old gentleman with significant past medical history of hypertension, hyperlipidemia, diabetes complicated with retinopathy and neuropathy, started almost m ore than 20 years back, the patient denied any coronary artery disease or osteoarthritis, partly the patient had recurrent foot infection on the right, currently on the left status post multiple toe amp utation. The patient not on antibiotic as outpatient. The patient came to the hospital from the [facility] with syncopal episode, found to have non-ST elevation NE, undergo cardiac cath, primary skyler p for the patient show elevation in BUN and creatinine. Creatinine on presentation was 1.9 with GFR of 37. On presentation, the patient had hyperglycemia with blood sugar of above 500. The patient de nied taking any nonsteroidal. As I mentioned, the patient was admitted with non-ST elevation NE. Re viewing the record for the patient back in October 2017, creatinine 1.2 with GFR of 63. The patient did not have any hypotension on this presentation. On arrival to the emergency room his blood pressure was 110. The patient started on IV fluid. Again, creatinine today has rise to 2 and yesterday was 1 .9, GFR dropped from 37 to 33. The patient as outpatient being on ROBIN inhibitor and hydrochlorothiaz tre. Past Medical History: Include: 1.Diabetes since 1999, complicated with retinopathy and neuropathy. 2.Hypertension. 3.Foot infection. Allergies: NO KNOWN DRUGS ALLERGY. Family History: Positive for hypertension. Past Surgical History: Include: 1.Multiple toe amputation. 2.I and D for buttock abscess. Social History: Ex-smoker. Denied active alcohol user. Denies drugs abuse. Medications: Home medications include: 1.Lisinopril. 2.Hydralazine. 3.Amlodipine. 4.Amitriptyline. 5.Gabapentin. 6.Carvedilol. 7.Hydrochlorothiazide. 8.Insulin. 9.Atorvastatin. 10.Aspirin. Current medication in the hospital includes; amitriptyline, amlodipine, aspirin, Lovenox, insulin, ni troglycerin, IV fluid. Review of Systems: Head and Neck: No red eye. No ear pain. GI: No nausea. No vomiting. : No polyuria. No dysuria. No hematuria. BRAKE COUPLER DINKEY: Not applicable. Respiratory: No shortness of breath. Neuro: Has presyncopal. Musculoskeletal: Has foot pain. Has neuropathy. Endocrine: No polydipsia. Skin: No rash. Physical Examination: Vital Signs: Blood pressure 141/81, pulse of 80. The patient had been urinating freely with urine o utput of 700. CHEST: Clear to auscultation. Heart: S1 and S2, regular. Abdomen: Soft and nontender. Extremity: No edema. Dressing on the foot. Laboratory Data: Sodium 143, potassium 3.6, bicarb 28, BUN 34, creatinine 2, GFR of 35; calcium 8.8, albumin 2.9, triglycerides 216. Again, on presentation, his blood sugar was above 500, currently bl ood sugar around 160. WBC 9, H and H 13.3/39.8, platelet 225. No peripheral eosinophilia. Previous lab data back in October 2017, creatinine 1.5 with GFR of 37. Assessment And Plan: 1.Acute kidney injury, multifactorial, questionable cardiorenal, superimposed with the ROBIN inhibitor and hydrochlorothiazide. Doubt to be currently contrast induced nephropathy as kidney function on p resentation before the exposure to the contrast was 1.9. Anyhow, still with acute kidney injury. I agree with placing the patient on IV fluid to establish better post cardiac cath, hydration. I do no t see any need for Mucomyst as there is no data to support used it anymore and there is no acidosis t o use any bicarb for the time being. 2.I going to go ahead and get renal ultrasound to rule out any obstructive uropathy and we will get protein creatinine to evaluate the proteinuria for the patient given that the patient has proteinuria +2 and +3 before. 3.Hypertension, controlled, optimal. I agree with holding ROBIN inhibitor given the acute kidney inju ry. Keep holding hydrochlorothiazide and we will follow up. 4.Non-ST elevation myocardial infarction, status post cardiac cath with possible component to avoid any acute kidney injury. I agree with IV hydration. Follow up with Cardiology. 5.Diabetes as by primary. Thank you, Dr. Palafox, for allowing us to participate in the care of your patient. SAMRA/MARIANA Voice ID: [id number] Report ID: [id number]
[2018-11-29 20:19] LABS: Urine Protein/Creatinine Ratio 1.91 ratio (<0.15)
[2018-11-29] MEDS: ATORVASTATIN 80 MG TAB PO SCH (20:22)
[2018-11-29] MEDS: INSULIN GLARGINE 100 UNITS/ML SQ SCH (20:22)
[2018-11-29] MEDS ORDERED: AMITRIPTYLINE 25 MG TAB PO SCH (21:00)
--- NOTE | 2018-11-29 21:55 | PN ---
Date of Progress Note: 11/29/2018 The patient had come in to the hospital with diaphoresis, glucose over 500, abnormal EKG, and atypica l chest pain. Catheterization showed mild coronary artery disease. He is doing well today. No ches t pain. No problem breathing. Right groin showed no hematoma. Telemetry showed normal rhythm. His main reason for staying is blood glucose control and better diabetes control. I think we need to co ntinue his home medication when he goes home. We need to maximize his statin therapy and I will see him in the office in about 2-4 weeks. MOE/MARIANA Voice ID: [id number] Report ID: [id number]
[2018-11-30 04:32] LABS: Absolute Lymphocytes (CBC) 2.4 K/uL (0.7-4.9); Basophils % 1.2 % (0-1.3); Lymphocytes % 36.7 % (15.3-44.8); Monocytes % 8.4 % (3.3-12.3); RBC Red Blood Cell Count 4.29 M/uL (4.33-5.43)
[2018-11-30 04:52] LABS: Albumin 2.5 g/dL (3.4-5.0); Bilirubin Total 0.8 mg/dL (0.2-1.0); Phosphorus 3.7 mg/dL (2.5-4.9); Potassium 3.3 mmol/L (3.5-5.1); Thyroid Stimulating Hormone 1.18 uIU/mL (0.360-3.740)
[2018-11-30] MEDS: INSULIN -REGULAR HUMAN 50 UNIT/0.5 ML ML SQ SCH ×2 (07:30→12:02)
[2018-11-30] MEDS: INSULIN GLARGINE 100 UNITS/ML SQ SCH (08:07)
[2018-11-30] MEDS: ENOXAPARIN 40 MG/0.4 ML SQ SCH (08:08)
[2018-11-30] MEDS: ASPIRIN 325 MG TAB PO SCH (08:08)
[2018-11-30] MEDS: GABAPENTIN 100 MG CAP PO SCH ×2 (08:08→13:43)
[2018-11-30] MEDS: NA CHLORIDE 0.9% 1,000 ML IV SCH (08:09)
[2018-11-30] MEDS: METOPROLOL TAR 25 MG TAB PO SCH (08:09)
[2018-11-30] MEDS: COLLAGENASE 30 GM OINTMENT TOP SCH (08:12)
[2018-11-30] MEDS ORDERED: AMLODIPINE 10 MG TAB PO SCH (09:00)
[2018-11-30] MEDS ORDERED: POTASSIUM CL SA 10 MEQ TAB PO ONE (09:48)
[2018-11-30 12:35] VITALS: BP 152/93; TEMP 98.6
--- NOTE | 2018-11-30 12:44 | PN ---
Date of Progress Note: 11/30/2018 Subjective: The patient was admitted with unstable angina, status post cardiac cath. The patient coley d acute kidney injury, started on hydration. Physical Examination: Vital Signs: Blood pressure 172/108, pulse of 68. Chest: Clear to auscultation. Heart: S1 and S2, regular. Abdomen: Soft and nontender. Extremities: No edema. Laboratory Data: WBC 6.5, H and H 12.1/36, and platelet 187. Sodium 144, potassium 3.3, bicarb 28, BUN 27, creatinine 1.5 trending down. GFR up to 48. Calcium 7.7, phosphorus 3.7. TSH 1.8, PC ratio is 1.9. Current Medications: The patient on its include IV fluid at 50 per hour, aspirin, Lovenox, Norvasc 1 0, metoprolol 25 b.i.d., gabapentin. Assessment And Plan: 1.Acute kidney injury secondary to prerenal, doubt to be related to contrast-induced nephropathy giv ing the recovery, protein uric, non-nephrotic, normal size kidney 03/03.8. The patient pass 48 hour after cardiac cath, I will discontinue IV fluid. The patient is going to be cleared from the renal s tandpoint for discharge planning. 2.Hypertension, not controlled. Discontinue IV fluid. I will add a low dose of hydralazine. I goi ng to be reluctant to resume ROBIN inhibitor or ARB for the time being. 3.Otw-IB-zdffmfkhy myocardial infarction as by Cardiology. The patient cleared from the renal stand point for discharge planning. I will need followup in 2 weeks with chemistry. Case discussed with Dr. Palafox, agreed on the plan. Discussed with the staff, agreed. Discussed with the patient, v erbalized understanding. SAMRA/MARIANA Voice ID: [id number] Report ID: [id number]
[2018-11-30] MEDS ORDERED: HYDRALAZINE HCL 25 MG TABLET PO SCH (14:00)
--- NOTE | 2018-11-30 22:54 | DS ---
Date of Discharge: 11/30/2018 Consultants: Dr. Fragoso with Cardiology, Dr. Moyer with Nephrology, Dr. Perez with Podiatry. Procedures: Cardiac cath on 11/28/2018 with mild coronary artery disease found. Admitting Diagnoses: 1.ST-elevation OK infarction. 2.Syncope, unclear etiology. 3.Diabetes mellitus, type 2, insulin requiring with severe hyperglycemia. 4.Multiple diabetic foot ulcers, noninfected. 5.Essential hypertension, currently hypotensive. 6.Mixed hyperlipidemia. 7.Diabetic neuropathy. 8.Obesity. Discharge Diagnoses: 1.ST elevation OK, status post cardiac cath with mild coronary artery disease found. 2.Syncope, unclear etiology, likely related to hypotension and hyperglycemia. 3.Diabetes mellitus, type 2, insulin-requiring, with hyperglycemia, not well controlled. 4.Acute kidney injury, improving. 5.Diabetic foot ulcer, not acutely infected. 6.Essential hypertension, stable. 7.Mixed hyperlipidemia. 8.Diabetic neuropathy. 9.Obesity, BMI 32. Hospital Course: The patient is a 53-year-old male, who is coming to the hospital for routine wound care appointment, however, had a syncopal episode in the car. The patient was a passenger. He was t herefore dropped off in the ER. Upon his workup, his EKG revealed ST-elevation OK. The patient was taken to cardiac pipelines laborer by Dr. Fragoso emergently. He was found to have mild coronary artery disea se. After waking up, the patient states that he did not get a chance to eat his breakfast or taking any water and his ride came to take him to the appointment and he had already taken all of his medica tions including 5 different blood pressure medications along with his insulin. The patient did well post cardiac catheterization. His lipid panel did show some mixed hyperlipidemia. His statin was in creased. Regarding his syncope, this was likely due to acute hypotension. His blood pressure medica tions were adjusted. He will no longer take his ROBIN inhibitor or hydrochlorothiazide. The dose of h is hydralazine will be decreased to 25 t.i.d. He was also on 2 beta-blockers. Metoprolol will be di scontinued. Regarding his diabetes, which is not well controlled at all, the patient states that he is usually well controlled with 70/30. He cannot afford Lantus, which was required to get his blood glucose under control. He states that he will go back to 70/30 as he cannot afford the Lantus. Over all, the patient did well. He was then cleared for discharge from Cardiology standpoint. He was als o seen by Dr. Moyer with Nephrology due to elevated kidney function, it was 1.9 upon admission. T he patient did receive contrast with cardiac catheterization, did not have a significant increase wit h IV hydration. The patient had improvement in his kidney function. The patient was then cleared fo r discharge, sent home in a stable condition. Activity: As tolerated. Medications: As per medication reconciliation list. Followup: Follow up with primary care physician in 2-3 days. Follow up with bus person dishwasher, Dr. Nba kapoor, in 2 weeks. Have repeat CMP done. Follow up with police service technician, Dr. Fragoso, in 2 weeks. Retur n to ER for worsening condition. Diet: Diabetic. Physical Examination: General: Awake, alert, oriented x3. No acute distress, obese male. CV: S1, S2. No murmurs. Respiratory: Moving air well bilaterally. Abdomen: Soft, nontender, nondistended. Positive bowel sounds. Extremities: No clubbing, cyanosis, edema. Skin: Cath site does not show any hematoma. Neuro: Nonfocal. Total time spent discharging the patient was 41 minutes. /MARIANA Voice ID: [id number] Report ID: [id number]
== END 2018-11-30 15:13 | disposition home or self-care (01) | DRG 281 ==
LOC: ER 09:03 → ERHOLD 11:00 → 4TH 13:30
PROVIDERS: ADMIT Family Medicine; ATTEND Family Medicine
PROC: 4A023N7 Measurement of Cardiac Sampling and Pressure, Left Heart, Percutaneous Approach (ICD-10-PCS; principal; 2018-11-28)
PROC: B201YZZ Plain Radiography of Multiple Coronary Arteries using Other Contrast (ICD-10-PCS; 2018-11-28)
PROC: 4A033BC Measurement of Arterial Pressure, Coronary, Percutaneous Approach (ICD-10-PCS; 2018-11-28)
DX: I21.3 ST elevation (STEMI) myocardial infarction of unspecified site (principal); N17.9 Acute kidney failure, unspecified; I25.10 Atherosclerotic heart disease of native coronary artery without angina pectoris; R55 Syncope and collapse; E11.65 Type 2 diabetes mellitus with hyperglycemia; E11.40 Type 2 diabetes mellitus with diabetic neuropathy, unspecified; E11.621 Type 2 diabetes mellitus with foot ulcer; I10 Essential (primary) hypertension; E78.2 Mixed hyperlipidemia; E66.9 Obesity, unspecified; Z68.32 Body mass index [BMI] 32.0-32.9, adult
CPT/HCPCS: 36415; 70450; 71045; 76770; 80048; 80053; 80061; 80069; 80076; 81003; 82570; 82947; 82962; 83735; 83880; 84156; 84443; 84484; 85025; 85610; 93005; 93458; 94760; 99291; C1760; C1893; J0583; J1644; J1650; J2250; J3010; J3101; J3590; J7030